=== PATIENT | female | born 1990 | race African-American/Black ===

== ENCOUNTER 2016-04-30 09:39 | Inpatient (IN) | payer MEDICAID ==
[2016-06-24] MEDS ORDERED: RINGERS SOLUTION,LACTATED 1,000 ML IV PRN ×2 (18:10→18:52)
[2016-06-24] MEDS ORDERED: RINGERS SOLUTION,LACTATED 300 ML IV ONE ×2 (18:10→18:52)
[2016-06-24] MEDS ORDERED: DINOPROSTONE 10 MG VAGINAL INSERT.SR PV PRN (18:10)
[2016-06-24] MEDS ORDERED: DINOPROSTONE 10 MG VAGINAL INSERT.SR ONE (18:49)
[2016-06-24 18:53] LABS: ABSOLUTE EOSINOPHILS # (AUTO) 0.1 10^3/uL (0.0-0.6); ABSOLUTE LYMPHOCYTES (AUTO) 1.6 10^3/uL (0.5-4.7); ABSOLUTE MONOCYTES (AUTO) 0.6 10^3/uL (0.1-1.4); ABSOLUTE NEUT (AUTO) 3.4 10^3/uL (1.7-8.2); BASOPHILS % (AUTO) 0.3 % (0-2); EOSINOPHILS % (AUTO) 1.1 % (0-6); HEMATOCRIT 31.7 % (36.0-47.0); HEMOGLOBIN 10.8 g/dL (12.0-15.5); HGB HCT DIFFERENCE 0.7; LYMPHOCYTES % (AUTO) 28.6 % (13-45); MEAN CORPUSCULAR HEMOGLOBIN 30.1 pg (27.0-33.4); MEAN CORPUSCULAR VOLUME 89 fl (80-97); MONOCYTES % (AUTO) 10.1 % (3-13); RED BLOOD COUNT 3.58 10^6/uL (3.72-5.28); RED CELL DISTRIBUTION WIDTH 13.2 % (11.5-14.0); SEGMENTED NEUTROPHILS % (AUTO) 59.9 % (42-78); WHITE BLOOD COUNT 5.6 10^3/uL (4.0-10.5)
[2016-06-24] MEDS ORDERED: GLYBURIDE 5 MG TABLET ONE (18:59)
[2016-06-24 19:11] LABS: ALANINE AMINOTRANSFERASE 33 U/L (9-52); ALBUMIN 3.3 g/dL (3.5-5.0); ALKALINE PHOSPHATASE 186 U/L (38-126); ANION GAP 10 (5-19); ASPARTATE AMINO TRANSFERASE 29 U/L (14-36); BILIRUBIN,DIRECT 0.2 mg/dL (0.0-0.4); BILIRUBIN,TOTAL 0.3 mg/dL (0.2-1.3); BLOOD UREA NITROGEN 18 mg/dL (7-20); CALCIUM 8.9 mg/dL (8.4-10.2); CARBON DIOXIDE 21 mmol/L (22-30); CHLORIDE 105 mmol/L (98-107); CREATININE RESULT 0.92 mg/dL (0.52-1.25); GLUCOSE 135 mg/dL (75-110); LDH 527 U/L (313-618); POTASSIUM 4.5 mmol/L (3.6-5.0); SODIUM 136.1 mmol/L (137-145); TOTAL PROTEIN 6.5 g/dL (6.3-8.2); URIC ACID 6.1 mg/dL (2.5-6.2)
[2016-06-24 19:27] LABS: APPEARANCE,URINE SLIGHTLY-CLOUDY; BILIRUBIN,URINE NEGATIVE (NEGATIVE); GLUCOSE, URINE NEGATIVE (NEGATIVE); KETONES,URINE NEGATIVE (NEGATIVE); LEUKOCYTE ESTERASE,URINE MODERATE (NEGATIVE); NITRITE,URINE NEGATIVE (NEGATIVE); PROTEIN,URINE 100 mg/dL (NEGATIVE); URINE SPECIFIC GRAVITY 1.025; UROBILINOGEN,URINE NEGATIVE mg/dL (<2.0)
[2016-06-24 19:32] LABS: URINE BARBITURATES SCREEN NEGATIVE; URINE METHADONE SCREEN NEGATIVE; URINE OPIATES LOW NEGATIVE; URINE PHENCYCLIDINE SCREEN NEGATIVE
[2016-06-24] MEDS ORDERED: GLYBURIDE 2.5 MG TABLET PO ONE (20:00)
[2016-06-24] MEDS ORDERED: CEFAZOLIN 1 GM/D5W RTU 50 ML IV SCH (22:00)
[2016-06-24] MEDS ORDERED: ZOLPIDEM TARTRATE 5 MG TABLET ONE (23:12)
[2016-06-24] MEDS ORDERED: ZOLPIDEM TARTRATE 5 MG TABLET PO ONE (23:15)
[2016-06-25] MEDS ORDERED: CEFAZOLIN 2 GM/D5W RTU 2 GM/50 ML RTUPB IV ONE (05:16)
[2016-06-25] MEDS ORDERED: GLYBURIDE 2.5 MG TABLET PO ONE (06:00)
[2016-06-25] MEDS ORDERED: CEFAZOLIN 2 GM/D5W RTU 50 ML IV ONE (06:00)
[2016-06-25] MEDS ORDERED: MISOPROSTOL 0.1 MG TABLET PO ONE ×2 (08:00→15:00)
[2016-06-25] MEDS ORDERED: MISOPROSTOL 0.1 MG TABLET ONE ×2 (08:28→13:51)
[2016-06-25] MEDS ORDERED: ONDANSETRON HCL INJ/PF 4 MG/2 ML SDV ONE (17:18)
[2016-06-25] MEDS ORDERED: FLUCONAZOLE 100 MG TABLET ONE (17:28)
[2016-06-25] MEDS ORDERED: PROMETHAZINE HCL 25 MG SUPP.RECT PR ONE (18:38)
[2016-06-25] MEDS ORDERED: ZOLPIDEM TARTRATE 5 MG TABLET ONE ×2 (20:30→21:32)
[2016-06-25] MEDS ORDERED: DINOPROSTONE 10 MG VAGINAL INSERT.SR ONE (20:31)
[2016-06-26 02:41] LABS: AMNISURE (ROM) NEGATIVE (NEGATIVE)
[2016-06-26] MEDS ORDERED: CEFAZOLIN 2 GM/D5W RTU 2 GM/50 ML RTUPB IV SCH (03:04)
[2016-06-26] MEDS ORDERED: ALBUTEROL SULFATE HFA (90 MCG/PUFF) 200 PUFF/8.5 GM MDI IH PRN (03:11)
[2016-06-26] MEDS ORDERED: ALBUTEROL SULFATE HFA (90 MCG/PUFF) 200 PUFF/8.5 GM MDI IH ONE (03:30)
[2016-06-26] MEDS ORDERED: CEFAZOLIN INJ 1 GM VIAL IV PRN (03:33)
[2016-06-26] MEDS ORDERED: CEFAZOLIN 2 GM/D5W RTU 2 GM/50 ML RTUPB IV ONE ×2 (03:54→11:11)
[2016-06-26] MEDS ORDERED: NALBUPHINE HCL INJ 10 MG/1 ML AMPULE ONE (04:39)
[2016-06-26] MEDS ORDERED: MISOPROSTOL 0.1 MG TABLET ONE (04:43)
[2016-06-26] MEDS ORDERED: BUPIVACAINE HCL 0.25 % INJ/PF (2.5 MG/1 ML) 30 ML VIAL ONE (05:28)
[2016-06-26] MEDS ORDERED: EPHEDRINE SULFATE INJ 50 MG/1 ML AMPULE ONE (05:28)
[2016-06-26] MEDS ORDERED: FENTANYL/BUPIVACAINE/NS/PF 200 MCG/100 ML RTUINJ EPI ONE (05:28)
[2016-06-26 05:55] LABS: ABSOLUTE MONOCYTES (AUTO) 0.8 10^3/uL (0.1-1.4); ABSOLUTE NEUT (AUTO) 9.5 10^3/uL (1.7-8.2); BASOPHILS % (AUTO) 0.3 % (0-2); HEMATOCRIT 34.3 % (36.0-47.0); HEMOGLOBIN 11.4 g/dL (12.0-15.5); HGB HCT DIFFERENCE -0.1; LYMPHOCYTES % (AUTO) 8.8 % (13-45); MEAN CORPUSCULAR HEMOGLOBIN 29.7 pg (27.0-33.4); MEAN CORPUSCULAR HGB CONC 33.2 g/dL (32.0-36.0); MEAN CORPUSCULAR VOLUME 90 fl (80-97); MONOCYTES % (AUTO) 7.2 % (3-13); RED BLOOD COUNT 3.84 10^6/uL (3.72-5.28); RED CELL DISTRIBUTION WIDTH 13.2 % (11.5-14.0); SEGMENTED NEUTROPHILS % (AUTO) 83.7 % (42-78)
[2016-06-26 06:04] LABS: WHITE BLOOD COUNT 11.3 10^3/uL (4.0-10.5)
[2016-06-26] MEDS ORDERED: OXYTOCIN/NORMAL SALINE 20 UNIT/1,000 ML RTUINJ ONE ×2 (08:46→11:06)
--- NOTE | 2016-06-26 11:02 | L&D Progress Notes ---
PROGRESS NOTES Datetime Report Generated by CPN: 06/26/2016 11:01 PROGRESS NOTE Impression: Normal Progression of Labor Impression: Normal Progression of Labor Procedures: Sterile Vag Exam Procedures: Sterile Vag Exam Plan: Continue Present Management; Induction Plan: Continue Present Management; Induction Informed Consent Obtained: Vaginal Delivery Informed Consent Obtained: Vaginal Delivery Vital Signs : Reviewed Vital Signs : Reviewed Vital Signs Comments: elevated bp Comment: Pt feeling pressure SVE as above Continue present mgmt VAGINAL EXAM Dilatation: 9 Dilatation: 0 Effacement: 90 Effacement: 50 Station: 0 Station: -1 Contractions: 3-5 MEMBRANES Membranes: Ruptured Membranes: Intact Amniotic Fluid Color: Meconium, Light FETUS A FHR - Baseline: 155 Monitoring: External US Variability: Moderate 6-25bpm Decelerations: None FHR Category: Category II SIGNATURE SIGNATURE: [id number] SIGNATURE: [id number] SIGNATURE: [id number] SIGNATURE: [id number] Assignment: Penelope Diane MD Signature: with User ID: [email or web address] : with User ID: [email or web address]
[2016-06-26] MEDS ORDERED: LIDOCAINE 1% INJ-PF (10 MG/ML) 30 ML SDV ONE (11:06)
[2016-06-26] MEDS ORDERED: MISOPROSTOL 0.2 MG TABLET ONE (11:06)
[2016-06-26] MEDS ORDERED: OXYTOCIN/NORMAL SALINE 1,000 ML IV PRN (13:25)
[2016-06-26] MEDS ORDERED: ACETAMINOPHEN WITH CODEINE #3 TABLET PO PRN ×2 (13:25)
[2016-06-26] MEDS ORDERED: MEASLES,MUMPS&RUBELLA VACC/PF 0.5 ML VIAL SUBCUT PRN (13:25)
[2016-06-26] MEDS ORDERED: DIBUCAINE 1% OINTMENT 28 GM TP PRN (13:25)
[2016-06-26] MEDS ORDERED: BENZOCAINE/MENTHOL AEROSOL SPRAY 56 ML TOP PRN (13:25)
[2016-06-26] MEDS ORDERED: ZOLPIDEM TARTRATE 5 MG TABLET PO PRN (13:25)
[2016-06-26] MEDS ORDERED: DIPH/PERTUSS(ACELL)/TETANUS VAC/PF 0.5 ML SYR (>=10YO) IM PRN (13:25)
--- NOTE | 2016-06-26 14:37 | Delivery Summary ---
Del Sum A-C Datetime Report Generated by CPN: 06/26/2016 14:37 DELIVERY PERSONNEL DELIVERY PERSONNEL: [id number];[id number];[id number] Delivery Doctor:: Araceli Juares CNM Nurse Aeronautical Inspector Certified:: Araceli Juares CNM Labor and Delivery Nurse:: Dayan Salazar RN Nursery Nurse:: Shanika Aceves RN Epilepsy Physician/TEAM OTR TRUCK DRIVER: Danae De La Torre, MARKETING COORDINATOR MATERNAL INFORMATION Delivery Anesthesia: Epidural Medications After Delivery: Pitocin Bolus-Please Comment; Pitocin Drip 20 Units/1000ml NSS; Other-Please Comment Meds After Delivery Comment: CYTOTEC 1000 MCG PER RECTUM @ 1240 Estimated Blood Loss (ml): 350 Maternal Complications: None Provider Comments: of viable male , head, shoulders, and body delivered without difficulty, with spontaneous cry and respirations, to maternal abdomen. Cord clamped X2 and cut free by pts after 2 minute delay. Spontaneous delivery of intact placenta via brian mechanism, appears intact 3 VC. Vagina and perineum inspected and repaired as above. Hemostasis acheived with external fundal massage and IV pitocin, routine pp care, mother and baby in stable condition, 1000 mcg rectal cytotec given for prophylaxis LABOR SUMMARY EDC: 07/14/2016 00:00 No. Babies in Womb: 1 Attempted: No Labor Anesthesia: Epidural LABOR INFORMATION Reason for Induction: Pre-Eclampsia; Maternal Diabetes Onset of Labor: 06/26/2016 05:28 Complete Dilatation: 06/26/2016 11:16 Cervical Ripening Agents: Cervidil; Cytotec @ Oxytocin: Induction Group B Beta Strep: positive Antibiotics # of Doses: 3 Antibiotics Time of Last Dose: 1120 Name of Antibiotic Given: Ancef 2 GM Steroids Given: None Reason Steroids Not Administered: Not Applicable MEMBRANES Membranes Rupture Method: Spontaneous Rupture of Membranes: 06/26/2016 05:50 Length of Rupture (hr): 6.68 Amniotic Fluid Color: Light Meconium Amniotic Fluid Amount: Small STAGES OF LABOR Stage 1 hr: 5 Stage 1 min: 48 Stage 2 hr: 1 Stage 2 min: 15 Stage 3 hr: 0 Stage 3 min: 4 Total Time in Labor hr: 7 Total Time in Labor min: 7 VAGINAL DELIVERY Episiotomy: None Laceration Extension: Second Degree Laceration Repair Note: Repaired with with 2-0 chromic in usual fashion using epidural for anesthesia Sponge Count Correct: Yes Sharps Count Correct: Yes CSECTION DELIVERY Primary Indication: N/A Secondary Indication: N/A CSection Incidence: N/A Labor: N/A Elective: N/A CSection Incision: N/A BABY A INFORMATION Infant Delivery Date/Time: 06/26/2016 12:31 Method of Delivery: Vaginal Born in Route : No : N/A Forceps: N/A Vacuum Extraction: N/A Shoulder Dystocia : No PRESENTATION/POSITION BABY A Presentation: Cephalic Cephalic Presentation: Vertex Vertex Position: Left Occipital Anterior Breech Presentation: N/A PLACENTA INFORMATION BABY A Placenta Delivery Time : 06/26/2016 12:35 Placenta Method of Delivery: Spontaneous Placenta Status: Delivered SCORES BABY A Heart Rate 1 min: >100 bpm Resp Effort 1 min: Good Cry Reflex Irritability 1 min: Cough or Sneeze or Pulls Away Muscle Tone 1 min: Active Motion Color 1 min: Blue/Pale Resuscitation Effort 1 min: Tactile Stimulation SCORE 1 MIN: 8 Heart Rate 5 min: >100 bpm Resp Effort 5 min: Good Cry Reflex Irritability 5 min: Cough or Sneeze or Pulls Away Muscle Tone 5 min: Active Motion Color 5 min: Body [place], Extremities Blue Resuscitation Effort 5 min: N/A SCORE 5 MIN: 9 Resuscitation Effort 10 min: N/A INFORMATION BABY A Gestational Age at Delivery: 37.3 Gestational Status: Early Term- 37- 38.6 Weeks Infant Outcome : Liveborn Infant Condition : Stable Infant Sex: Male IDENTIFICATION BABY A Verification Date/Time: 06/26/2016 12:44 ID Band Number: [id number] Mother's Name Verified: Yes RN Verifying : Sonia Harmon RNC Additional Verifying Personnel: Alexandra Herrera RN CORD INFORMATION BABY A No. Cord Vessels: 3 Nuchal Cord : N/A Cord Blood Taken: Yes-For Storage (Mom's Blood type +) Infant Suction: Mouth; Nose ASSESSMENT BABY A Physical Findings at Delivery: Caput Succedaneum Infant Respirations: Appears Normal Skin to Skin: Yes Supervisor Poultry Processing/ALS Called : No Care By: Shyanne Aceves RN Transferred To: Remains with Mother BABY B INFORMATION : N/A SIGNATURES Assignment: Penelope Diane MD Signature: with User ID: [email or web address] : with User ID: [email or web address]
--- NOTE | 2016-06-26 15:05 | Admission Physical ---
Datetime Report Generated by CPN: 06/26/2016 15:05 CURRENT ADMISSION Hx Assessment: The History has been Reviewed and is Current Chief Complaint: Other Chief Complaint Other: preeclampsia Indication for Induction: PreEclampsia Admit Plan: Initiate Labor Induction Protocol ALLERGIES Medication Allergies: Yes Medication Allergies: amoxicillin trihydrate (06/23/2016); Potassium Clavulanate */CA (06/23/2016) Medication Allergies: amoxicillin trihydrate (06/19/2016); Potassium Clavulanate */CA (06/19/2016) Medication Allergies: amoxicillin trihydrate (06/16/2016); Potassium Clavulanate * (06/16/2016) Medication Allergies: amoxicillin trihydrate (05/26/2016); Potassium Clavulanate * (05/26/2016) Medication Allergies: amoxicillin trihydrate (12/03/2015); Potassium Clavulanate * (12/03/2015) Latex: No Latex Allergies Food Allergies: none Environmental Allergies: none OBSTETRICAL HISTORY EDC: 07/14/2016 00:00 : 1 Para: 0 Term: 0 : 0 SAB: 0 IAB: 0 Ectopic: 0 Livin Cesareans: 0 VBACs: 0 Multiple Births: 0 Gestational Diabetes: Yes Rh Sensitization: No Incompetent Cervix: No GUME: No Infertility: No ART Treatment: No Uterine Anomaly: No IUGR: No Hx Previous C/S: No Macrosomia: No Hx Loss/Stillborn: No PIH: No Hx : No Placenta Previa/Abruption: No Depression/PP Depression: No PTL/PROM: No Post Hemorrhage: No Current Procedures: Ultrasound Obstetrical History Comments: G1 - Current GDM SEE RECORDS Alcohol: No Marijuana : No Cocaine: No Other Illicit Drugs: No Cigarettes: Never Smoker. [id number] MEDICAL HISTORY Diabetes: Yes Diabetes Type: Gestational Diabetes Blood Transfusion: No Pulmonary Disease (Asthma, TB): No Breast Disease: No Hypertension: Yes Medical Attendant Surgery: No Heart Disease: No Hosp/Surgery: Yes Autoimmune Disorder: No Anesthetic Complications: No Kidney Disease: No Abnormal Pap Smear: No Neuro/Epilepsy: No Psychiatric Disorders: No Other Medical Diseases: No Hepatitis/Liver Disease: No Significant Family History: No Varicosities/Phlebitis: No Trauma/Violence : No Thyroid Dysfunction: No INFECTIOUS HISTORY Gonorrhea: No Genital Herpes: No Chlamydia: No Tuberculosis: No Syphilis: No Hepatitis: No HIV/AIDS Exposure: No Rash or Viral Illness: No HPV: No PHYSICAL EXAM General: Normal HEENT: Normal Neurologic: Normal Thyroid: Normal Heart: Normal Lungs: Normal Breast: Normal Back: Normal Abdomen: Normal Genitourinary Exam: Normal Extremities: Normal DTRs: Normal Pelvic Type: Adequate Physical Exam Comments: GDMA2, preeclampsia GBS+ efw 6.5 pounds VAGINAL EXAM Dilatation: 9 Dilatation: 0 Effacement: 90 Effacement: 50 Station: 0 Station: -1 Contraction Comments: 3-5 MEMBRANES Membranes: Ruptured Membranes: Intact Amniotic Fluid Color: Meconium, Light FETUS A EGA: 37.1 Monitoring: External US FHR Category: Category I Admit Comment: Admit for induction due to preeclampsia-cervidl tonight, cont glyburide 2.5 bid, gbs prophylaxis in labor-check labs and consider magnesium seizure prophylaxis if needed PLANS FOR LABOR AND DELIVERY Labor and Delivery: Cord Blood Donation Pain Management: Epidural Feeding Preference: Breast Benefit of Breast Feed Discussed: Yes Circumcision: No INFORMED CONSENT Informed Consent Obtained: Vaginal Delivery Informed Consent Obtained: Vaginal Delivery Signature: with User ID: [email or web address]
[2016-06-26] MEDS: IBUPROFEN 800 MG TABLET PO SCH ×2 (15:52→21:17)
[2016-06-26] MEDS: DOCUSATE SODIUM 100 MG CAPSULE PO SCH (17:27)
[2016-06-26] MEDS: FERROUS SULFATE 325 MG TABLET PO SCH (17:27)
[2016-06-27] MEDS: IBUPROFEN 800 MG TABLET PO SCH ×3 (05:47→21:13)
[2016-06-27 06:44] LABS: HEMATOCRIT 27.4 % (36.0-47.0); HGB HCT DIFFERENCE 0.2; MEAN CORPUSCULAR HEMOGLOBIN 30.2 pg (27.0-33.4); MEAN CORPUSCULAR HGB CONC 33.5 g/dL (32.0-36.0); MEAN CORPUSCULAR VOLUME 90 fl (80-97); RED BLOOD COUNT 3.04 10^6/uL (3.72-5.28); RED CELL DISTRIBUTION WIDTH 13.1 % (11.5-14.0); WHITE BLOOD COUNT 13.4 10^3/uL (4.0-10.5)
[2016-06-27 07:03] LABS: HEMOGLOBIN 9.2 g/dL (12.0-15.5)
[2016-06-27] MEDS: DOCUSATE SODIUM 100 MG CAPSULE PO SCH ×2 (09:19→17:19)
[2016-06-27] MEDS: FERROUS SULFATE 325 MG TABLET PO SCH ×2 (09:19→17:19)
[2016-06-27] MEDS: PRENATAL VITAMIN W-O CA NO5/FE FUMARATE/FA CAPSULE PO SCH (09:19)
--- NOTE | 2016-06-27 09:37 | PDOC PROGRESS REPORT ---
Subjective-OB Subjective: Post Delivery Day: 1 25 year old. Denies any needs at this time, states pain is well controlled, voiding without difficulty, lochia is stable, tolerating diet, bonding well with baby. Physical Exam (OB) Vital Signs: Temp Pulse Resp BP Pulse Ox 98.4 F 79 18 130/91 H 98 06/26/16 20:04 06/26/16 20:04 06/26/16 20:04 06/26/16 20:04 06/26/16 20:04 Intake & Output 06/26/16 06/27/16 06/28/16 06:59 06:59 06:59 Weight 94.665 kg - PIH/Pre-Eclampsia Clonus: Negative - Lochia Lochia Amount: Small 10-25 ml Lochia Color: Rubra/Red - Abdomen Description: Soft, Round Hernia Present: No Fundal Description: Firm, Midline Fundal Height: u/u - u/2 Objective-Diagnostic Laboratory: 06/27/16 06:18 06/24/16 18:06 06/27/16 06:18 WBC 13.4 H RBC 3.04 L Hgb 9.2 L D Hct 27.4 L MCV 90 MCH 30.2 MCHC 33.5 RDW 13.1 Plt Count 252 Assessment and Plan(PN) - Assessment and Plan (1) Vaginal delivery Is this a current diagnosis for this admission?: YesPlan: routine pp care (2) Acute blood loss anemia Is this a current diagnosis for this admission?: YesPlan: ferrous sulfate increase dietary iron (3) Gestational diabetes Qualifiers: Gestational diabetes mellitus control: diet-controlled Trimester: unspecified trimester Qualified Code(s): O24.410 - Gestational diabetes mellitus in , diet controlled Is this a current diagnosis for this admission?: YesPlan: will need pp glucose screening yearly dm screening for next 10 year (4) Pre-eclampsia Qualifiers: Trimester: unspecified trimester Qualified Code(s): O14.90 - Unspecified pre-eclampsia, unspecified trimester Is this a current diagnosis for this admission?: YesPlan: monitor bp 1 week bp check f/u @ wha - Time Spent with Patient Time with patient: Less than 15 minutes Critical Time spent with patient: Less than 15 minutes Medications reviewed and adjusted accordingly: Yes - Disposition Anticipated Discharge: Home Within: within 24 hours
[2016-06-27] MEDS ORDERED: SENNOSIDES/DOCUSATE 8.6-50 MG 1 EACH TABLET PO SCH (10:00)
[2016-06-28] MEDS: IBUPROFEN 800 MG TABLET PO SCH (05:18)
[2016-06-28 09:10] VITALS: BP 125/88
[2016-06-28] MEDS: PRENATAL VITAMIN W-O CA NO5/FE FUMARATE/FA CAPSULE PO SCH (09:43)
[2016-06-28] MEDS: FERROUS SULFATE 325 MG TABLET PO SCH (09:43)
[2016-06-28] MEDS: DOCUSATE SODIUM 100 MG CAPSULE PO SCH (09:43)
--- NOTE | 2016-06-28 09:48 | PDOC DISCHARGE SUMMARY ---
Final Diagnosis Discharge Date: 06/28/16 - Final Diagnosis (1) Acute blood loss anemia Is this a current diagnosis for this admission?: Yes (2) Vaginal delivery Is this a current diagnosis for this admission?: Yes (3) Gestational diabetes Is this a current diagnosis for this admission?: Yes (4) Pre-eclampsia Is this a current diagnosis for this admission?: Yes Discharge Data - Discharge Medication Home Medications: Fluticasone/Salmeterol [Advair 100-50 Diskus 28 Dose] 2 inh IH DAILY 05/26/16 Vit/Iron Fumarate/FA [ Tablet] 1 each PO DAILY 05/26/16 Docusate Sodium [Colace 100 mg Capsule] 100 mg PO BID #60 capsule 06/28/16 Ferrous Sulfate [Feosol 325 mg Tablet] 325 mg PO BID #60 tablet 06/28/16 Ibuprofen [Motrin 800 mg Tablet] 800 mg PO Q8 #60 tablet 06/28/16 Gestational Age: 37.3 Reason(s) for Admission: Induction of Labor, PIH Procedures: NST Intrapartum Procedure(s): Spontaneous Vaginal Delivery Complication(s): Laceration-Vaginal, Laceration-Perineal Laceration-Degree: 2nd - Simpson Data Baby 1 Male at 1 minute: 8 at 5 minutes: 9 Home with Mother: Yes Complications: No - Diagnosis Test Laboratory: Temp Pulse Resp BP Pulse Ox 98.9 F 95 16 125/88 H 97 06/28/16 08:48 06/28/16 08:55 06/28/16 08:48 06/28/16 08:55 06/28/16 08:48 06/24/16 06/24/16 06/26/16 18:06 18:08 05:47 RBC 3.58 L 3.84 Hgb 10.8 L 11.4 L Hct 31.7 L 34.3 L Urine Opiates Screen NEGATIVE 06/27/16 06:18 RBC 3.04 L Hgb 9.2 L D Hct 27.4 L Urine Opiates Screen - Discharge information/Instructions Discharge Activity: Activity As Tolerated, No Lifting Over 10 Pounds, No Lifting /Push/Pulling, Pelvic Rest, No tub bath Discharge Diet: Regular Disposition: HOME, SELF-CARE Follow up with: [facility] in: 1, Weeks
== END 2016-06-28 11:40 | disposition home or self-care (01) | DRG 775 ==
LOC: 5TH 09:39 → UNDOADMIN 09:39 → LR 06-24 17:27 → 2S 06-26 15:04
PROVIDERS: ADMIT Specialist; ATTEND Specialist
PROC: 4A1HXCZ Monitoring of Products of Conception, Cardiac Rate, External Approach (ICD-10-PCS; 2016-06-24)
PROC: 3E0P7GC Introduction of Other Therapeutic Substance into Female Reproductive, Via Natural or Artificial Opening (ICD-10-PCS; 2016-06-24)
PROC: 10E0XZZ Delivery of Products of Conception, External Approach (ICD-10-PCS; principal; 2016-06-26)
PROC: 0KQM0ZZ Repair Perineum Muscle, Open Approach (ICD-10-PCS; 2016-06-26)
DX: O14.94 Unspecified pre-eclampsia, complicating childbirth (principal); D62 Acute posthemorrhagic anemia; O24.429 Gestational diabetes mellitus in childbirth, unspecified control; O99.02 Anemia complicating childbirth; O70.1 Second degree perineal laceration during delivery; O77.0 Labor and delivery complicated by meconium in amniotic fluid; O99.824 Streptococcus B carrier state complicating childbirth; Z3A.37 37 weeks gestation of pregnancy; Z37.0 Single live birth
CPT/HCPCS: 36415; 80053; 80307; 81005; 82962; 83615; 84112; 84550; 85025; 85027; 86592; 86850; 86900; 86901; 90707; J0690; J2300; J2405; J2590; J3490; Q0114

== ENCOUNTER 2016-05-26 10:08 | Outpatient (CLI) | payer MEDICAID ==
[2016-05-26 10:59] LABS: APPEARANCE,URINE SLIGHTLY-CLOUDY; BILIRUBIN,URINE NEGATIVE (NEGATIVE); GLUCOSE, URINE NEGATIVE (NEGATIVE); KETONES,URINE NEGATIVE (NEGATIVE); LEUKOCYTE ESTERASE,URINE LARGE (NEGATIVE); NITRITE,URINE NEGATIVE (NEGATIVE); PROTEIN,URINE NEGATIVE (NEGATIVE); URINE SPECIFIC GRAVITY 1.014; UROBILINOGEN,URINE NEGATIVE mg/dL (<2.0)
[2016-05-26 11:22] LABS: URINE BARBITURATES SCREEN NEGATIVE; URINE METHADONE SCREEN NEGATIVE; URINE OPIATES LOW NEGATIVE; URINE PHENCYCLIDINE SCREEN NEGATIVE
--- NOTE | 2016-05-26 16:14 | L&D Discharge Summary ---
OB Discharge Summary Datetime Report Generated by CPN: 05/26/2016 16:14 DISCHARGE DIAGNOSIS Diagnosis/Symptoms: False Labor Number of Babies in Womb: 1 Parity: 0 DIET/ACTIVITY/RESTRICTIONS Diet: Regular Activity: Normal Activity TEACHING/INSTRUCTIONS/REFERRALS Instructions Given To: Patient, Instructions Understood: Patient Verbalized Understanding; Support Person Verbalized Understanding Referrals: None Educational Materials- Other: Kick Counts, Labor DISCHARGE INFORMATION Discharged AMA: No Discharge Date/Time: 05/26/2016 12:00 Discharged To: Home Discharge Provider Name: Dr. Villareal Accompanied By: Discharge Method: Ambulatory Condition: Stable FOLLOW UP INFORMATION Follow Up With: [facility] Follow Up On: As Scheduled Follow Up Phone Number: [facility] - GENERAL INSTR-CALL PROVIDER IF: Contractions: Contractions or cramps become more frequent than 8 in one hour or 4 in 20 minutes; Regular painful contractions every 5 minutes or less for one hour. Time your contractions from the beginning of one to the beginning of the next Pressure: Pressure in your vagina or lower abdomen that may feel like the baby is pushing down Gush of Fluid/Blood: Gush of fluid or blood from your vagina (it is normal to have spotting after vaginal exam or intercourse) Vaginal Discharge: Change in the type or amount of vaginal discharge Decreased Movement: Your baby is not moving as much as usual- 4 movements in 1 hour after drinking and resting on side
--- NOTE | 2016-05-27 22:48 | Antepartum Discharge Summary ---
Antepartum DC Datetime Report Generated by CPN: 05/27/2016 22:45 DIET/ACTIVITY/RESTRICTIONS Diet: Regular (05/26/2016 12:00:Nu Broman, RN) Activity: Normal Activity (05/26/2016 12:00:Nu Broman, RN) TEACHING/INSTRUCTIONS/REFERRALS Instructions Given To: Patient, (05/26/2016 12:00:Nu Broman, RN) Instructions Understood: Patient Verbalized Understanding; Support Person Verbalized Understanding (05/26/2016 12:00:Nu Broman, RN) Referrals: None (05/26/2016 12:00:Nu Wynn RN) Educational Materials- Other: Kick Counts, Labor (05/26/2016 12:00:Nu Wynn RN) DISCHARGE INFORMATION Discharged AMA: No (05/26/2016 12:00:Nu Wynn RN) Discharge Date/Time: 05/26/2016 12:00 (05/26/2016 12:00:Nu Wynn RN) Discharged To: Home (05/26/2016 12:00:Nu Wynn RN) Discharge Provider Name: Dr. Villareal (05/26/2016 12:00:Nu Wynn RN) Accompanied By: (05/26/2016 12:00:Nu Wynn RN) Discharge Method: Ambulatory (05/26/2016 12:00:Nu Wynn RN) Condition: Stable (05/26/2016 12:00:Nu Wynn RN) FOLLOW UP INFORMATION Follow Up With: [facility] (05/26/2016 12:00:Nu Wynn RN) Follow Up On: As Scheduled (05/26/2016 12:00:Nu Wynn RN) Follow Up Phone Number: [facility] - (05/26/2016 12:00:Nu Wynn RN) GENERAL INSTR-CALL PROVIDER IF: Contractions: Contractions or cramps become more frequent than 8 in one hour or 4 in 20 minutes; Regular painful contractions every 5 minutes or less for one hour. Time your contractions from the beginning of one to the beginning of the next (05/26/2016 12:00:Nu Wynn RN) Pressure: Pressure in your vagina or lower abdomen that may feel like the baby is pushing down (05/26/2016 12:00:Nu Wynn RN) Gush of Fluid/Blood: Gush of fluid or blood from your vagina (it is normal to have spotting after vaginal exam or intercourse) (05/26/2016 12:00:Nu Wynn RN) Vaginal Discharge: Change in the type or amount of vaginal discharge (05/26/2016 12:00:Nu Wynn RN) Decreased Movement: Your baby is not moving as much as usual- 4 movements in 1 hour after drinking and resting on side (05/26/2016 12:00:Nu Wynn RN)
--- NOTE | 2016-05-27 22:48 | L&D Discharge Summary ---
OB Discharge Summary Datetime Report Generated by CPN: 05/27/2016 22:45 DISCHARGE DIAGNOSIS Diagnosis/Symptoms: False Labor Gestation: 33.0 Number of Babies in Womb: 1 Parity: 0 DIET/ACTIVITY/RESTRICTIONS Diet: Regular Activity: Normal Activity TEACHING/INSTRUCTIONS/REFERRALS Instructions Given To: Patient, Instructions Understood: Patient Verbalized Understanding; Support Person Verbalized Understanding Referrals: None Educational Materials- Other: Kick Counts, Labor DISCHARGE INFORMATION Discharged AMA: No Discharge Date/Time: 05/26/2016 12:00 Discharged To: Home Discharge Provider Name: Dr. ChaMono Accompanied By: Discharge Method: Ambulatory Condition: Stable FOLLOW UP INFORMATION Follow Up With: [facility] Follow Up On: As Scheduled Follow Up Phone Number: [facility] - GENERAL INSTR-CALL PROVIDER IF: Contractions: Contractions or cramps become more frequent than 8 in one hour or 4 in 20 minutes; Regular painful contractions every 5 minutes or less for one hour. Time your contractions from the beginning of one to the beginning of the next Pressure: Pressure in your vagina or lower abdomen that may feel like the baby is pushing down Gush of Fluid/Blood: Gush of fluid or blood from your vagina (it is normal to have spotting after vaginal exam or intercourse) Vaginal Discharge: Change in the type or amount of vaginal discharge Decreased Movement: Your baby is not moving as much as usual- 4 movements in 1 hour after drinking and resting on side
--- NOTE | 2016-05-27 22:48 | L&D Current Admission ---
Current Admit Datetime Report Generated by CPN: 05/27/2016 22:45 ADMISSION INFORMATION Chief Complaint: Contractions (05/26/2016 10:34:Nu Broman, RN)
--- NOTE | 2016-05-27 22:48 | L&D General Admission ---
General Admit Datetime Report Generated by CPN: 05/27/2016 22:45 INFORMATION Patient Age: 26 (04/30/2016 09:39:QS system process) EDC: 07/14/2016 00:00 (05/26/2016 10:16:Nu Wynn RN) : 1 (05/26/2016 10:16:Nu Wynn RN) Para: 0 (05/26/2016 10:16:Nu Wynn RN) Term: 0 (05/26/2016 10:16:Nu Wynn RN) : 0 (05/26/2016 10:16:Nu Wynn RN) Spontaneous Abortions: 0 (05/26/2016 10:16:Nu Wynn RN) Induced Abortions: 0 (05/26/2016 10:16:Nu Wynn RN) Livin (05/26/2016 10:16:Nu Wynn RN) Cesareans: 0 (05/26/2016 10:16:Nu Wynn RN) VBACs: 0 (05/26/2016 10:16:Nu Wynn RN) Ectopic: 0 (05/26/2016 10:16:Nu Wynn RN) Multiple Births: 0 (05/26/2016 10:16:Nu Wynn RN) Baby, Number in Womb: 1 (05/26/2016 10:16:Nu Wynn RN) CARE [facility] Contracts[facility] (05/26/2016 10:16:Nu Wynn RN) Adequate Care: Yes (05/26/2016 10:16:Nu Wynn RN) Height (in): 64 (05/26/2016 10:58:QS system process) ALLERGIES Medication Allergy: Yes (05/26/2016 10:16:Nu Wynn RN) Medication Allergies: amoxicillin trihydrate (05/26/2016); Potassium Clavulanate * (05/26/2016) (05/26/2016 10:53:QS system process) Medication Allergies: amoxicillin trihydrate (12/03/2015); Potassium Clavulanate * (12/03/2015) (04/30/2016 09:39:QS system process) Latex Allergy: No Latex Allergies (05/26/2016 10:16:Nu Wynn RN) COMMUNICATION Primary Language: Urdu (05/26/2016 10:16:Nu Wynn RN) Medical Tx Preferred Language: Urdu (05/26/2016 10:16:Nu Wynn RN) Communication Barrier(s): None (05/26/2016 10:16:Nu Wynn RN) DEMOGRAPHICS Address: [address] [place] [address] (04/30/2016 09:39:QS system process) Zipcode: [address] (04/30/2016 09:39:QS system process) Home (04/30/2016 09:39:QS system process) SSN: [id number] (04/30/2016 09:39:QS system process) Next of Kin Name: FILIPE PALOMO (04/30/2016 09:39:QS system process) Next of Kin (04/30/2016 09:39:QS system process) Next of Kin Relationship: FA (04/30/2016 09:39:QS system process) Date of : 1990 (04/30/2016 09:39:QS system process) Marital Status: (04/30/2016 09:39:QS system process) Sex: Female (04/30/2016 09:39:QS system process) Race: (04/30/2016 09:39:QS system process) Ethnicity: Non- or (04/30/2016 09:39:QS system process) Jain: None (04/30/2016 09:39:QS system process) DRUG AND ALCOHOL USE Alcohol: No (05/26/2016 10:16:Nu Wynn RN) Cigarettes: Never Smoker. [id number] (05/26/2016 10:16:Nu Wynn RN) Marijuana: No (05/26/2016 10:16:Nu Wynn RN) Cocaine: No (05/26/2016 10:16:Nu Wynn RN) Other Illicit Drugs: No (05/26/2016 10:16:Nu Wynn RN) VACCINE HISTORY Influenza Vaccine: Yes (05/26/2016 10:16:Nu Wynn RN) Influenza Date: 11/2015 (05/26/2016 10:16:Nu Wynn RN) Pneumococcal Vaccine: No (05/26/2016 10:16:Nu Wynn RN) Tetanus Vaccine: Yes (05/26/2016 10:16:Nu Wynn RN) Tdap Vaccine: Yes (05/26/2016 10:16:Nu Wynn RN) Hepatitis B Vaccine: Uncertain (05/26/2016 10:16:Nu Wynn RN) Founder And President: [facility] (05/26/2016 10:16:Nu Wynn RN) Feeding Preference: Breast (05/26/2016 10:16:Nu Wynn RN) Benefit of Breast Feed Discussed: Yes (05/26/2016 10:16:Nu Wynn RN) Circumcision: No (05/26/2016 10:16:Nu Wynn RN) Classes Attended: Yes (05/26/2016 10:16:Nu Wynn RN) Tubal Ligation: No (05/26/2016 10:16:Nu Wynn RN) Consent: N/A (05/26/2016 10:16:Nu Wynn RN) Pain Management Plans: Epidural (05/26/2016 10:16:Nu Wynn RN) Plans for Labor and Delivery: Cord Blood Donation (05/26/2016 10:16:Nu Wynn RN) Support Person: Vincent (05/26/2016 10:16:Nu Wynn RN) Support Person Relationship: (05/26/2016 10:16:Nu Wynn RN) Cultural/Spritual Practice: No (05/26/2016 10:16:Nu Wynn RN) Spir/Cult Dietary Needs: No (05/26/2016 10:16:Nu Wynn RN) LIVING SITUATION/DISCHARGE PLAN Living Arrangements: Apartment (05/26/2016 10:16:Nu Wynn RN) Adequate Access to:: Electric; Heat; Refrigeration; Plumbing/Running water; Phone; Transportation (05/26/2016 10:16:Nu Wynn RN) WIC Program: Yes (05/26/2016 10:16:Nu Wynn RN) Discharge [place] Stained Glass Person: (05/26/2016 10:16:Nu Wynn RN) Person to Help after Discharge: (05/26/2016 10:16:Nu Wynn RN) Currently Using Commun Resources: Yes (05/26/2016 10:16:Nu Wynn RN) Specify Current Resource Used: Medicaid, Food/Nutrition (05/26/2016 10:16:Nu Wynn RN) Outside Agency/Physician Anesthesiologist: No (05/26/2016 10:16:Nu Wynn RN) Car Seat for Discharge: Yes (05/26/2016 10:16:Nu Wynn RN) Adoption Requested: No (05/26/2016 10:16:Nu Wynn RN) Pt Contact w/ Post : N/A (05/26/2016 10:16:Nu Wynn RN) LABS Blood Type: B Positive (05/26/2016 10:16:Nu Wynn RN) Antibody Screen: Negative (05/26/2016 10:16:Nu Wynn RN) Gonorrhea: Negative (05/26/2016 10:16:Nu Wynn RN) Chlamydia: Negative (05/26/2016 10:16:Nu Wynn RN) RPR/VDRL: Nonreactive (05/26/2016 10:16:Nu Wynn RN) HIV Exposure Test: Negative (05/26/2016 10:16:Nu Wynn RN) HIV Results: Negative (05/26/2016 10:16:Nu Wynn RN) Hepatitis B: Negative (05/26/2016 10:16:Nu Wynn RN) Rubella: Immune (05/26/2016 10:16:Nu Wynn RN) OB/PREVIOUS HISTORY Previous Procedures: None (05/26/2016 10:16:Nu Wynn RN) Current Procedures: Ultrasound (05/26/2016 10:16:Nu Wynn RN) History of Previous : No (05/26/2016 10:16:Nu Wynn RN) History of Gestational Diabetes: Yes (05/26/2016 10:16:uN Wynn RN) History of PIH: No (05/26/2016 10:16:Nu Wynn RN) History of Incompetent Cervix: No (05/26/2016 10:16:Nu Wynn RN) History of Placenta Previa/Abrup: No (05/26/2016 10:16:Nu Wynn RN) History of Macrosomia: No (05/26/2016 10:16:Nu Wynn RN) History of IUGR: No (05/26/2016 10:16:Nu Wynn RN) History of Hemorrhage: No (05/26/2016 10:16:Nu Wynn RN) History of Loss/Stillborn: No (05/26/2016 10:16:Nu Wynn RN) History of : No (05/26/2016 10:16:Nu Wynn RN) History of D (Rh) Sensitization: No (05/26/2016 10:16:Nu Wynn RN) History Recurrent Loss/Stillborn: No (05/26/2016 10:16:Nu Wynn RN) History Depression/PP Depression: No (05/26/2016 10:16:Nu Wynn RN) History of Uterine Anomaly/GUME: No (05/26/2016 10:16:Nu Wynn RN) History of Infertility: No (05/26/2016 10:16:Nu Wynn RN) History of ART Treatment: No (05/26/2016 10:16:Nu Wynn RN) History of GUME: No (05/26/2016 10:16:Nu Wynn RN) Comments Obstetrical History: G1 - Current GDM diet controlled (05/26/2016 10:16:Nu Wynn RN) MEDICAL HISTORY Med Hx Diabetes: No (05/26/2016 10:16:Nu Wynn RN) Med Hx Hypertension: Yes (05/26/2016 10:16:Nu Wynn RN) Med Hx Heart Disease: No (05/26/2016 10:16:Nu Wynn RN) Med Hx Autoimmune Disorder: No (05/26/2016 10:16:Nu Wynn RN) Med Hx Kidney Disease/UTI: No (05/26/2016 10:16:Nu Wynn RN) Med Hx Neurologic/Epilepsy: No (05/26/2016 10:16:Nu Wynn RN) Med Hx Psychiatric Disorders: No (05/26/2016 10:16:Nu Wynn RN) Med Hx Hepatitis/Liver Disease: No (05/26/2016 10:16:Nu Wynn RN) Med Hx Varicosities/Phlebitis: No (05/26/2016 10:16:Nu Wynn RN) Med Hx Thyroid Dysfunction: No (05/26/2016 10:16:Nu Wynn RN) Med Hx Trauma/Violence: No (05/26/2016 10:16:Nu Wynn RN) Med Hx Blood Transfusion: No (05/26/2016 10:16:Nu Wynn RN) Med Hx Pulmonary (Asthma,TB): No (05/26/2016 10:16:Nu Wynn RN) Med Hx Breast: No (05/26/2016 10:16:Nu Wynn RN) 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 (05/26/2016 10:16:Nu Wynn RN) Med Hx Hospitalization/Surgery: Yes (05/26/2016 10:16:Nu Wynn RN) Med Hx Anesthetic Complications: No (05/26/2016 10:16:Nu Wynn RN) Med Hx Abnormal Pap Smear: No (05/26/2016 10:16:Nu Wynn RN) Other Medical Diseases: No (05/26/2016 10:16:Nu Wynn RN) Med Hx Significant Family Hx: No (05/26/2016 10:16:Nu Wynn RN) INFECTIOUS HISTORY Inf Hx Gonorrhea: No (05/26/2016 10:16:Nu Wynn RN) Inf Hx Chlamydia: No (05/26/2016 10:16:Nu Wynn RN) Inf Hx Syphilis: No (05/26/2016 10:16:Nu Wynn RN) Inf Hx HIV/AIDS: No (05/26/2016 10:16:Nu Wynn RN) Inf Hx Human Papilloma Virus: No (05/26/2016 10:16:Nu Wynn RN) Inf Hx Pt/Partner Genital Herpes: No (05/26/2016 10:16:Nu Wynn RN) Inf Hx Tuberculosis/Exposure: No (05/26/2016 10:16:Nu Wynn RN) Inf Hx Hepatitis B,C: No (05/26/2016 10:16:Nu Wynn RN) Inf Hx Rash or Viral Illness: No (05/26/2016 10:16:Nu Wynn RN) GENETIC HISTORY Gen Hx Age >=35 at CLAU: No (05/26/2016 10:16:Nu Wynn RN) Gen Hx Thalassemia: No (05/26/2016 10:16:Nu Wynn RN) Gen Hx Congenital Heart Defect: No (05/26/2016 10:16:Nu Wynn RN) Gen Hx Neural Tube Defect: No (05/26/2016 10:16:Nu Wynn RN) Gen Hx Down's Syndrome: No (05/26/2016 10:16:Nu Wynn RN) Gen Hx Jacky-Sachs: No (05/26/2016 10:16:Nu Wynn RN) Gen Hx [place]: No (05/26/2016 10:16:Nu Wynn RN) Gen Hx Familial Dysautonomia: No (05/26/2016 10:16:Nu Wynn RN) Gen Hx Sickle Cell Disease/Trait: Yes (05/26/2016 10:16:Nu Wynn RN) Gen Hx Hemophilia/Blood Disorder: No (05/26/2016 10:16:Nu Wynn RN) Gen Hx Muscular Dystrophy: No (05/26/2016 10:16:Nu Wynn RN) Gen Hx Cystic Fibrosis: No (05/26/2016 10:16:Nu Wynn RN) Gen Hx [place] Chorea: No (05/26/2016 10:16:Nu Wynn RN) Gen Hx Mental Retardation/Autism: No (05/26/2016 10:16:Nu Wynn RN) Gen Hx Tested for Fragile X: No (05/26/2016 10:16:Nu Wynn RN) Gen Hx Other Inher/Chromosomal: No (05/26/2016 10:16:Nu Wynn RN) Gen Hx Maternal Metabolic DO: No (05/26/2016 10:16:Nu Wynn RN) Gen Hx Pt Father or FOB Defect: No (05/26/2016 10:16:Nu Wynn RN) Gen Hx Other Genetic History: No (05/26/2016 10:16:Nu Wynn RN) Gen Hx Drugs/Meds since LMP: No (05/26/2016 10:16:Nu Wynn RN) Details of Genetic History: Sickle Cell Disease - Maternal Mother (05/26/2016 10:16:Nu Wynn RN)
--- NOTE | 2016-05-28 04:48 | L&D Admission Assessment ---
LD ADM ASMT Datetime Report Generated by CPN: 05/28/2016 04:46 PATIENT ASSESSMENT Assessment Type: Triage (05/26/2016 10:34:Nu Broman, RN) WEIGHT Weight (lb): 202 (05/26/2016 10:58:QS system process) Weight (kg): 91.8 (05/26/2016 10:58:QS system process) PAIN Pain Presence: Intermittent (05/26/2016 10:34:Nu Broman, RN) Pain Type: Cramping; Contraction (05/26/2016 10:34:Nu Broman, RN) Pain Location: Abdomen (05/26/2016 10:34:Nu Broman, RN) Pain Related to Contraction: Yes (05/26/2016 10:34:Nu Broman, RN) CONTRACTIONS Frequency (min): none (05/26/2016 11:30:Nu Broman, RN) Frequency (min): none (05/26/2016 11:00:Nu Broman, RN) Frequency (min): irregular per pt, infrequent today per pt report (05/26/2016 10:34:Nu Broman, RN) Quality: Mild (05/26/2016 11:30:Nu Broman, RN) Quality: Mild (05/26/2016 11:00:Nu Broman, RN) Resting Tone [place]: Relaxed (05/26/2016 11:30:Nu Broman, RN) Resting Tone [place]: Relaxed (05/26/2016 11:00:Nu Broman, RN) VAGINAL EXAM Dilatation (cm): 0.0 (05/26/2016 11:47:Nu Broman, RN) Effacement (%): 0 (05/26/2016 11:47:Nu Broman, RN) Membranes Status: Intact (05/26/2016 10:34:Nu Broman, RN) NEURO Level of Consciousness: Fully Conscious (05/26/2016 10:34:Nu Broman, RN) DTR's/Clonus: DTRs 2+; No Clonus (05/26/2016 10:34:Nu Broman, RN) Headache: Denies (05/26/2016 10:34:Nu Broman, RN) Dizziness: No (05/26/2016 10:34:Nu Broman, RN) Blurred Vision: No (05/26/2016 10:34:Nu Broman, RN) Extremity Numbness/Tingling : None (05/26/2016 10:34:Nu Broman, RN) Extremity Movement: Full Range of Motion (05/26/2016 10:34:Nu Broman, RN) CARDIOVASCULAR Heart Rhythm: Regular (05/26/2016 10:34:Nu Wynn RN) Nailbeds: [place] (05/26/2016 10:34:Nu Wynn RN) Capillary Refill: Less than 3 Seconds (05/26/2016 10:34:uN Wynn RN) Lower Extremities Edema: None (05/26/2016 10:34:Nu Wynn RN) Upper Extremities Edema: None (05/26/2016 10:34:Nu Wynn RN) Facial Edema: None (05/26/2016 10:34:Nu Wynn RN) DVT RISK ASSESSMENT DVT Risk Age: Age less than 41 years (05/26/2016 10:34:Nu Wynn RN) DVT Risk BMI: BMI<31 (05/26/2016 10:34:Nu Wynn RN) DVT Risk Surgery: None Applicable (05/26/2016 10:34:Nu Wynn RN) DVT Risk Other: Women Only- or (<1 month) (05/26/2016 10:34:Nu Wynn RN) DVT Risk Total: 1 (05/26/2016 10:34:QS system process) DVT Risk Text: Low Risk (<10%) No specific measures, early ambulation (05/26/2016 10:34:QS system process) RESPIRATORY Respiratory Effort: Unlabored; Regular Rhythm; Equal Expansion (05/26/2016 10:34:Nu Broman, RN) Breath Sounds, Left: Clear and Equal (05/26/2016 10:34:Nu Broman, RN) Breath Sounds, Right: Clear and Equal (05/26/2016 10:34:Nu Broman, RN) Cough Productivity: None (05/26/2016 10:34:Nu Broman, RN) GASTROINTESTINAL Nausea/Vomiting: Denies (05/26/2016 10:34:Nu Broman, RN) Bowel Sounds: Normoactive; All Quadrants (05/26/2016 10:34:Nu Broman, RN) RUQ Epigastric Pain: Denies (05/26/2016 10:34:Nu Broman, RN) Bowel Patterns: Soft, Formed Stool (05/26/2016 10:34:Nu Broman, RN) Hemorrhoids: None (05/26/2016 10:34:Nu Broman, RN) Diet Type: Regular diet (05/26/2016 10:34:Nu Broman, RN) Last Meal: 05/26/2016 09:00 (05/26/2016 10:34:Nu Broman, RN) GENITOURINARY Bladder: Nondistended (05/26/2016 10:34:Nu Broman, RN) Frequency of Urination: Yes (05/26/2016 10:34:Nu Broman, RN) Urination Burning: No (05/26/2016 10:34:Nu Broman, RN) Vaginal Bleeding: None (05/26/2016 10:34:Nu Broman, RN) Vaginal Discharge Amount: Small (05/26/2016 10:34:Nu Broman, RN) Vaginal Discharge Color: White (05/26/2016 10:34:Nu Broman, RN) Vaginal Discharge Odor: Non-Odorous (05/26/2016 10:34:Nu Broman, RN) Vaginal Discharge Character: Thin (05/26/2016 10:34:Nu Broman, RN) INTEGUMENTARY Skin Color: Normal for Race (05/26/2016 10:34:Nu Wynn RN) Skin Temperature: Warm (05/26/2016 10:34:Nu Wynn RN) Skin Moisture: Dry (05/26/2016 10:34:Nu Wynn RN) IGLESIA SKIN ASSESSMENT Iglesia Scale Sensory Perception: No Impairment- Responds to verbal commands. Has no sensory deficit which would limit ability to feel or voice pain or discomfort (05/26/2016 10:34:Nu Wynn RN) Iglesia Scale Moisture: Rarely Moist- Skin is usually dry. Linen only requires changing at routine intervals (05/26/2016 10:34:Nu Wynn RN) Iglesia Scale Activity: Walks Frequently- Walks outside the room at least twice a day and inside room at least every 2 hours during the day. (05/26/2016 10:34:Nu Wynn RN) Iglesia Scale Mobility: No Limitations- Makes major and frequent changes in position without assistance (05/26/2016 10:34:Nu Wynn RN) Iglesia Scale Nutrition: Excellent- Eats most of every meal. Never refuses a meal. Usually eats a total of 4 or more servings of meat and dairy products. Occasionally eats between meals. Does not require supplementation (05/26/2016 10:34:Nu Wynn RN) Iglesia Scale Friction and Shear: No Apparent Problem- Moves in bed and in chair independently and has sufficient muscle strength to lift up completely during move. Maintains good position in bed or chair at all times (05/26/2016 10:34:Nu Broman, RN) Iglesia Scale Total: 23 (05/26/2016 10:34:QS system process) Iglesia Scale Risk: No Risk of Pressure Ulcer Noted at this Time (05/26/2016 10:34:QS system process) SUPPORT Family Support: Significant Other supportive, at bedside frequently (05/26/2016 10:34:Nu Wynn, RN) Emotional State: Calm/Relaxed (05/26/2016 10:34:Nu Bromlyn, RN) SAFETY Call [place] Within Reach: Yes (05/26/2016 10:34:Nu Wynn, RN) Side Rails Up: Yes (05/26/2016 10:34:Nu Wynn RN) Bed Wheels Locked: Yes (05/26/2016 10:34:Nu Wynn RN) Arm Bands Present: Yes (05/26/2016 10:34:Nu Bromlyn, RN) Isolation: [place] (05/26/2016 10:34:Nu Broman, RN) FALL SCREEN Fall Risk History of Falling: (0) No (05/26/2016 10:34:Nu Wynn RN) Fall Risk Secondary Diagnosis: (0) No (05/26/2016 10:34:Nu Wynn RN) Fall Risk Ambulatory Aid: (0) None/Bedrest/Wheelchair/Nurse Assist (05/26/2016 10:34:Nu Wynn RN) Fall Risk IV Therapy: (0) No (05/26/2016 10:34:Nu Wynn RN) Fall Risk Gait: (0) Normal/Bedrest/Immobile (05/26/2016 10:34:Nu Wynn RN) Fall Risk Mental Status: (0) Oriented to Own Ability (05/26/2016 10:34:Nu Wynn RN) Fall Risk Score: 0 (05/26/2016 10:34:QS system process) Fall Risk Score Definition: No Risk: No action required (05/26/2016 10:34:QS system process) BABY A FHR Baseline Rate (bpm) Baby A: 145 (05/26/2016 11:30:Nu Wynn RN) FHR Baseline Rate (bpm) Baby A: 150 (05/26/2016 11:00:Nu Wynn RN) Variability Baby A: Moderate 6-25 bpm (05/26/2016 11:30:Nu Wynn RN) Variability Baby A: Moderate 6-25 bpm (05/26/2016 11:00:Nu Wynn RN) Accelerations Baby A: 15X15 (05/26/2016 11:30:Nu Wynn RN) Accelerations Baby A: 15X15 (05/26/2016 11:00:Nu Wynn RN) Decelerations Baby A: None (05/26/2016 11:30:Nu Wynn RN) Decelerations Baby A: None (05/26/2016 11:00:Nu Wynn RN)
--- NOTE | 2016-05-28 04:48 | L&D Discharge Summary ---
OB Discharge Summary Datetime Report Generated by CPN: 05/28/2016 04:46 DISCHARGE DIAGNOSIS Diagnosis/Symptoms: False Labor Gestation: 33.0 Number of Babies in Womb: 1 Parity: 0 DIET/ACTIVITY/RESTRICTIONS Diet: Regular Activity: Normal Activity TEACHING/INSTRUCTIONS/REFERRALS Instructions Given To: Patient, Instructions Understood: Patient Verbalized Understanding; Support Person Verbalized Understanding Referrals: None Educational Materials- Other: Kick Counts, Labor DISCHARGE INFORMATION Discharged AMA: No Discharge Date/Time: 05/26/2016 12:00 Discharged To: Home Discharge Provider Name: Dr. ChaMono Accompanied By: Discharge Method: Ambulatory Condition: Stable FOLLOW UP INFORMATION Follow Up With: [facility] Follow Up On: As Scheduled Follow Up Phone Number: [facility] - GENERAL INSTR-CALL PROVIDER IF: Contractions: Contractions or cramps become more frequent than 8 in one hour or 4 in 20 minutes; Regular painful contractions every 5 minutes or less for one hour. Time your contractions from the beginning of one to the beginning of the next Pressure: Pressure in your vagina or lower abdomen that may feel like the baby is pushing down Gush of Fluid/Blood: Gush of fluid or blood from your vagina (it is normal to have spotting after vaginal exam or intercourse) Vaginal Discharge: Change in the type or amount of vaginal discharge Decreased Movement: Your baby is not moving as much as usual- 4 movements in 1 hour after drinking and resting on side
--- NOTE | 2016-05-28 04:48 | L&D General Admission ---
General Admit Datetime Report Generated by CPN: 05/28/2016 04:46 INFORMATION Patient Age: 26 (04/30/2016 09:39:QS system process) EDC: 07/14/2016 00:00 (05/26/2016 10:16:Nu Wynn RN) : 1 (05/26/2016 10:16:Nu Wynn RN) Para: 0 (05/26/2016 10:16:Nu Wynn RN) Term: 0 (05/26/2016 10:16:Nu Wynn RN) : 0 (05/26/2016 10:16:Nu Wynn RN) Spontaneous Abortions: 0 (05/26/2016 10:16:Nu Wynn RN) Induced Abortions: 0 (05/26/2016 10:16:Nu Wynn RN) Livin (05/26/2016 10:16:Nu Wynn RN) Cesareans: 0 (05/26/2016 10:16:Nu Wynn RN) VBACs: 0 (05/26/2016 10:16:uN Wynn RN) Ectopic: 0 (05/26/2016 10:16:Nu Wynn RN) Multiple Births: 0 (05/26/2016 10:16:Nu Wynn RN) Baby, Number in Womb: 1 (05/26/2016 10:16:Nu Wynn RN) CARE [facility] Pressure Controller[facility] (05/26/2016 10:16:Nu Wynn RN) Adequate Care: Yes (05/26/2016 10:16:Nu Wynn RN) Height (in): 64 (05/26/2016 10:58:QS system process) ALLERGIES Medication Allergy: Yes (05/26/2016 10:16:Nu Wynn RN) Medication Allergies: amoxicillin trihydrate (05/26/2016); Potassium Clavulanate * (05/26/2016) (05/26/2016 10:53:QS system process) Medication Allergies: amoxicillin trihydrate (12/03/2015); Potassium Clavulanate * (12/03/2015) (04/30/2016 09:39:QS system process) Latex Allergy: No Latex Allergies (05/26/2016 10:16:Nu Wynn RN) COMMUNICATION Primary Language: Macedonian (05/26/2016 10:16:Nu Wynn RN) Medical Tx Preferred Language: Macedonian (05/26/2016 10:16:Nu Wynn RN) Communication Barrier(s): None (05/26/2016 10:16:Nu Wynn RN) DEMOGRAPHICS Address: [address] [place] [address] (04/30/2016 09:39:QS system process) Zipcode: [address] (04/30/2016 09:39:QS system process) Home (04/30/2016 09:39:QS system process) SSN: [id number] (04/30/2016 09:39:QS system process) Next of Kin Name: FILIPE PALOMO (04/30/2016 09:39:QS system process) Next of Kin (04/30/2016 09:39:QS system process) Next of Kin Relationship: FA (04/30/2016 09:39:QS system process) Date of : 1990 (04/30/2016 09:39:QS system process) Marital Status: (04/30/2016 09:39:QS system process) Sex: Female (04/30/2016 09:39:QS system process) Race: (04/30/2016 09:39:QS system process) Ethnicity: Non- or (04/30/2016 09:39:QS system process) Shinto: None (04/30/2016 09:39:QS system process) DRUG AND ALCOHOL USE Alcohol: No (05/26/2016 10:16:Nu Wynn RN) Cigarettes: Never Smoker. [id number] (05/26/2016 10:16:Nu Wynn RN) Marijuana: No (05/26/2016 10:16:Nu Wynn RN) Cocaine: No (05/26/2016 10:16:Nu Wynn RN) Other Illicit Drugs: No (05/26/2016 10:16:Nu Wynn RN) VACCINE HISTORY Influenza Vaccine: Yes (05/26/2016 10:16:Nu Wynn RN) Influenza Date: 11/2015 (05/26/2016 10:16:Nu Wynn RN) Pneumococcal Vaccine: No (05/26/2016 10:16:Nu Wynn RN) Tetanus Vaccine: Yes (05/26/2016 10:16:Nu Wynn RN) Tdap Vaccine: Yes (05/26/2016 10:16:Nu Wynn RN) Hepatitis B Vaccine: Uncertain (05/26/2016 10:16:Nu Wynn RN) Drop Clipper: [facility] (05/26/2016 10:16:Nu Wynn RN) Feeding Preference: Breast (05/26/2016 10:16:Nu Wynn RN) Benefit of Breast Feed Discussed: Yes (05/26/2016 10:16:Nu Wynn RN) Circumcision: No (05/26/2016 10:16:Nu Wynn RN) Classes Attended: Yes (05/26/2016 10:16:Nu Wynn RN) Tubal Ligation: No (05/26/2016 10:16:Nu Wynn RN) Consent: N/A (05/26/2016 10:16:Nu Wynn RN) Pain Management Plans: Epidural (05/26/2016 10:16:Nu Wynn RN) Plans for Labor and Delivery: Cord Blood Donation (05/26/2016 10:16:Nu Wynn RN) Support Person: Vincent (05/26/2016 10:16:Nu Wynn RN) Support Person Relationship: (05/26/2016 10:16:Nu Wynn RN) Cultural/Spritual Practice: No (05/26/2016 10:16:Nu Wynn RN) Spir/Cult Dietary Needs: No (05/26/2016 10:16:Nu Wynn RN) LIVING SITUATION/DISCHARGE PLAN Living Arrangements: Apartment (05/26/2016 10:16:Nu Wynn RN) Adequate Access to:: Electric; Heat; Refrigeration; Plumbing/Running water; Phone; Transportation (05/26/2016 10:16:Nu Wynn RN) WIC Program: Yes (05/26/2016 10:16:Nu Wynn RN) Discharge Devops Engineer Person: (05/26/2016 10:16:Nu Wynn RN) Person to Help after Discharge: (05/26/2016 10:16:Nu Wynn RN) Currently Using Commun Resources: Yes (05/26/2016 10:16:Nu Wynn RN) Specify Current Resource Used: Medicaid, Food/Nutrition (05/26/2016 10:16:Nu Wynn RN) Outside Agency/Business Analyst Sales Operations: No (05/26/2016 10:16:Nu Wynn RN) Car Seat for Discharge: Yes (05/26/2016 10:16:Nu Wynn RN) Adoption Requested: No (05/26/2016 10:16:Nu Wynn RN) Pt Contact w/ Post : N/A (05/26/2016 10:16:Nu Wynn RN) LABS Blood Type: B Positive (05/26/2016 10:16:Nu Wynn RN) Antibody Screen: Negative (05/26/2016 10:16:Nu Wynn RN) Gonorrhea: Negative (05/26/2016 10:16:Nu Wynn RN) Chlamydia: Negative (05/26/2016 10:16:Nu Wynn RN) RPR/VDRL: Nonreactive (05/26/2016 10:16:Nu Wynn RN) HIV Exposure Test: Negative (05/26/2016 10:16:Nu Wynn RN) HIV Results: Negative (05/26/2016 10:16:Nu Wynn RN) Hepatitis B: Negative (05/26/2016 10:16:Nu Wynn RN) Rubella: Immune (05/26/2016 10:16:Nu Wynn RN) OB/PREVIOUS HISTORY Previous Procedures: None (05/26/2016 10:16:Nu Wynn RN) Current Procedures: Ultrasound (05/26/2016 10:16:Nu Wynn RN) History of Previous : No (05/26/2016 10:16:Nu Wynn RN) History of Gestational Diabetes: Yes (05/26/2016 10:16:Nu Wynn RN) History of PIH: No (05/26/2016 10:16:Nu Wynn RN) History of Incompetent Cervix: No (05/26/2016 10:16:Nu Wynn RN) History of Placenta Previa/Abrup: No (05/26/2016 10:16:Nu Wynn RN) History of Macrosomia: No (05/26/2016 10:16:Nu Wynn RN) History of IUGR: No (05/26/2016 10:16:Nu Wynn RN) History of Hemorrhage: No (05/26/2016 10:16:Nu Wynn RN) History of Loss/Stillborn: No (05/26/2016 10:16:Nu Wynn RN) History of : No (05/26/2016 10:16:Nu Wynn RN) History of D (Rh) Sensitization: No (05/26/2016 10:16:Nu Wynn RN) History Recurrent Loss/Stillborn: No (05/26/2016 10:16:Nu Wynn RN) History Depression/PP Depression: No (05/26/2016 10:16:Nu Wynn RN) History of Uterine Anomaly/GUME: No (05/26/2016 10:16:Nu Wynn RN) History of Infertility: No (05/26/2016 10:16:Nu Wynn RN) History of ART Treatment: No (05/26/2016 10:16:Nu Wynn RN) History of GUME: No (05/26/2016 10:16:Nu Wynn RN) Comments Obstetrical History: G1 - Current GDM diet controlled (05/26/2016 10:16:Nu Wynn RN) MEDICAL HISTORY Med Hx Diabetes: No (05/26/2016 10:16:Nu Wynn RN) Med Hx Hypertension: Yes (05/26/2016 10:16:Nu Wynn RN) Med Hx Heart Disease: No (05/26/2016 10:16:Nu Wynn RN) Med Hx Autoimmune Disorder: No (05/26/2016 10:16:Nu Wynn RN) Med Hx Kidney Disease/UTI: No (05/26/2016 10:16:Nu Wynn RN) Med Hx Neurologic/Epilepsy: No (05/26/2016 10:16:Nu Wynn RN) Med Hx Psychiatric Disorders: No (05/26/2016 10:16:Nu Wynn RN) Med Hx Hepatitis/Liver Disease: No (05/26/2016 10:16:Nu Wynn RN) Med Hx Varicosities/Phlebitis: No (05/26/2016 10:16:Nu Wynn RN) Med Hx Thyroid Dysfunction: No (05/26/2016 10:16:Nu Wynn RN) Med Hx Trauma/Violence: No (05/26/2016 10:16:Nu Wynn RN) Med Hx Blood Transfusion: No (05/26/2016 10:16:Nu Wynn RN) Med Hx Pulmonary (Asthma,TB): No (05/26/2016 10:16:Nu Wynn RN) Med Hx Breast: No (05/26/2016 10:16:Nu Wynn RN) Med 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: No (05/26/2016 10:16:Nu Wynn RN) Med Hx Hospitalization/Surgery: Yes (05/26/2016 10:16:Nu Wynn RN) Med Hx Anesthetic Complications: No (05/26/2016 10:16:Nu Wynn RN) Med Hx Abnormal Pap Smear: No (05/26/2016 10:16:Nu Wynn RN) Other Medical Diseases: No (05/26/2016 10:16:Nu Wynn RN) Med Hx Significant Family Hx: No (05/26/2016 10:16:Nu Wynn RN) INFECTIOUS HISTORY Inf Hx Gonorrhea: No (05/26/2016 10:16:Nu Wynn RN) Inf Hx Chlamydia: No (05/26/2016 10:16:Nu Wynn RN) Inf Hx Syphilis: No (05/26/2016 10:16:Nu Wynn RN) Inf Hx HIV/AIDS: No (05/26/2016 10:16:Nu Wynn RN) Inf Hx Human Papilloma Virus: No (05/26/2016 10:16:Nu Wynn RN) Inf Hx Pt/Partner Genital Herpes: No (05/26/2016 10:16:Nu Wynn RN) Inf Hx Tuberculosis/Exposure: No (05/26/2016 10:16:Nu Wynn RN) Inf Hx Hepatitis B,C: No (05/26/2016 10:16:Nu Wynn RN) Inf Hx Rash or Viral Illness: No (05/26/2016 10:16:Nu Wynn RN) GENETIC HISTORY Gen Hx Age >=35 at CLAU: No (05/26/2016 10:16:Nu Wynn RN) Gen Hx Thalassemia: No (05/26/2016 10:16:Nu Wynn RN) Gen Hx Congenital Heart Defect: No (05/26/2016 10:16:Nu Wynn RN) Gen Hx Neural Tube Defect: No (05/26/2016 10:16:Nu Wynn RN) Gen Hx Down's Syndrome: No (05/26/2016 10:16:Nu Wynn RN) Gen Hx Jacky-Sachs: No (05/26/2016 10:16:Nu Wynn RN) Gen Hx Destin: No (05/26/2016 10:16:Nu Wynn RN) Gen Hx Familial Dysautonomia: No (05/26/2016 10:16:Nu Wynn RN) Gen Hx Sickle Cell Disease/Trait: Yes (05/26/2016 10:16:Nu Wynn RN) Gen Hx Hemophilia/Blood Disorder: No (05/26/2016 10:16:Nu Wynn RN) Gen Hx Muscular Dystrophy: No (05/26/2016 10:16:Nu Wynn RN) Gen Hx Cystic Fibrosis: No (05/26/2016 10:16:Nu Wynn RN) Gen Hx [place] Chorea: No (05/26/2016 10:16:Nu Wynn RN) Gen Hx Mental Retardation/Autism: No (05/26/2016 10:16:Nu Wynn RN) Gen Hx Tested for Fragile X: No (05/26/2016 10:16:Nu Wynn RN) Gen Hx Other Inher/Chromosomal: No (05/26/2016 10:16:Nu Wynn RN) Gen Hx Maternal Metabolic DO: No (05/26/2016 10:16:Nu Wynn RN) Gen Hx Pt Father or FOB Defect: No (05/26/2016 10:16:Nu Wynn RN) Gen Hx Other Genetic History: No (05/26/2016 10:16:Nu Wynn RN) Gen Hx Drugs/Meds since LMP: No (05/26/2016 10:16:Nu Wynn RN) Details of Genetic History: Sickle Cell Disease - Maternal Mother (05/26/2016 10:16:Nu Wynn RN)
--- NOTE | 2016-05-28 04:48 | Antepartum Discharge Summary ---
Antepartum DC Datetime Report Generated by CPN: 05/28/2016 04:46 DIET/ACTIVITY/RESTRICTIONS Diet: Regular (05/26/2016 12:00:Nu Broman, RN) Activity: Normal Activity (05/26/2016 12:00:Nu Broman, RN) TEACHING/INSTRUCTIONS/REFERRALS Instructions Given To: Patient, (05/26/2016 12:00:Nu Broman, RN) Instructions Understood: Patient Verbalized Understanding; Support Person Verbalized Understanding (05/26/2016 12:00:Nu Broman, RN) Referrals: None (05/26/2016 12:00:Nu Wynn RN) Educational Materials- Other: Kick Counts, Labor (05/26/2016 12:00:Nu Wynn RN) DISCHARGE INFORMATION Discharged AMA: No (05/26/2016 12:00:Nu Wynn RN) Discharge Date/Time: 05/26/2016 12:00 (05/26/2016 12:00:Nu Wynn RN) Discharged To: Home (05/26/2016 12:00:Nu Wynn RN) Discharge Provider Name: Dr. Villareal (05/26/2016 12:00:Nu Wynn RN) Accompanied By: (05/26/2016 12:00:Nu Wynn RN) Discharge Method: Ambulatory (05/26/2016 12:00:Nu Wynn RN) Condition: Stable (05/26/2016 12:00:Nu Wynn RN) FOLLOW UP INFORMATION Follow Up With: [facility] (05/26/2016 12:00:Nu Wynn RN) Follow Up On: As Scheduled (05/26/2016 12:00:Nu Wynn RN) Follow Up Phone Number: [facility] - (05/26/2016 12:00:Nu Wynn RN) GENERAL INSTR-CALL PROVIDER IF: Contractions: Contractions or cramps become more frequent than 8 in one hour or 4 in 20 minutes; Regular painful contractions every 5 minutes or less for one hour. Time your contractions from the beginning of one to the beginning of the next (05/26/2016 12:00:Nu Wynn RN) Pressure: Pressure in your vagina or lower abdomen that may feel like the baby is pushing down (05/26/2016 12:00:Nu Wynn RN) Gush of Fluid/Blood: Gush of fluid or blood from your vagina (it is normal to have spotting after vaginal exam or intercourse) (05/26/2016 12:00:Nu Wynn RN) Vaginal Discharge: Change in the type or amount of vaginal discharge (05/26/2016 12:00:Nu Wynn RN) Decreased Movement: Your baby is not moving as much as usual- 4 movements in 1 hour after drinking and resting on side (05/26/2016 12:00:Nu Wynn RN)
--- NOTE | 2016-05-28 04:48 | L&D Current Admission ---
Current Admit Datetime Report Generated by CPN: 05/28/2016 04:46 ADMISSION INFORMATION Chief Complaint: Contractions (05/26/2016 10:34:Nu Kingsley, RN)
--- NOTE | 2016-05-28 10:48 | L&D Current Admission ---
Current Admit Datetime Report Generated by CPN: 05/28/2016 10:45 ADMISSION INFORMATION Chief Complaint: Contractions (05/26/2016 10:34:Nu Kingsley, RN)
--- NOTE | 2016-05-28 10:48 | L&D Admission Assessment ---
LD ADM ASMT Datetime Report Generated by CPN: 05/28/2016 10:45 Weight (lb): 202 (05/26/2016 10:58:QS system process) Weight (kg): 91.8 (05/26/2016 10:58:QS system process) Frequency (min): none (05/26/2016 11:30:Nu Wynn RN) Frequency (min): none (05/26/2016 11:00:Nu Wynn RN) Quality: Mild (05/26/2016 11:30:Numakenzie Wynn RN) Quality: Mild (05/26/2016 11:00:Numakenzie Wynn, RN) Resting Tone Newcomb: Relaxed (05/26/2016 11:30:Nu Wynn RN) Resting Tone Newcomb: Relaxed (05/26/2016 11:00:Numakenzie Wynn RN) Dilatation (cm): 0.0 (05/26/2016 11:47:Nu Wynn, RN) Effacement (%): 0 (05/26/2016 11:47:Nu Wynn RN) FHR Baseline Rate (bpm) Baby A: 145 (05/26/2016 11:30:Nu Bromlyn, RN) FHR Baseline Rate (bpm) Baby A: 150 (05/26/2016 11:00:Nu Bromlyn, RN) Variability Baby A: Moderate 6-25 bpm (05/26/2016 11:30:Nu Bromlyn, RN) Variability Baby A: Moderate 6-25 bpm (05/26/2016 11:00:Nu Bromlyn, RN) Accelerations Baby A: 15X15 (05/26/2016 11:30:Nu Broman, RN) Accelerations Baby A: 15X15 (05/26/2016 11:00:Nu Wynn RN) Decelerations Baby A: None (05/26/2016 11:30:Nu Wynn RN) Decelerations Baby A: None (05/26/2016 11:00:Nu Wynn RN)
--- NOTE | 2016-05-28 10:48 | L&D General Admission ---
General Admit Datetime Report Generated by CPN: 05/28/2016 10:45 INFORMATION Patient Age: 26 (04/30/2016 09:39:QS system process) EDC: 07/14/2016 00:00 (05/26/2016 10:16:Nu Wynn RN) : 1 (05/26/2016 10:16:Nu Wynn RN) Para: 0 (05/26/2016 10:16:Nu Wynn RN) Term: 0 (05/26/2016 10:16:Nu Wynn RN) : 0 (05/26/2016 10:16:Nu Wynn RN) Spontaneous Abortions: 0 (05/26/2016 10:16:Nu Wynn RN) Induced Abortions: 0 (05/26/2016 10:16:Nu Wynn RN) Livin (05/26/2016 10:16:Nu Wynn RN) Cesareans: 0 (05/26/2016 10:16:Nu Wynn RN) VBACs: 0 (05/26/2016 10:16:Nu Wynn RN) Ectopic: 0 (05/26/2016 10:16:Nu Wynn RN) Multiple Births: 0 (05/26/2016 10:16:Nu Wynn RN) Baby, Number in Womb: 1 (05/26/2016 10:16:Nu Wynn RN) CARE Primary Support [facility] (05/26/2016 10:16:Nu Wynn RN) Adequate Care: Yes (05/26/2016 10:16:Nu Wynn RN) Height (in): 64 (05/26/2016 10:58:QS system process) ALLERGIES Medication Allergy: Yes (05/26/2016 10:16:Nu Wynn RN) Medication Allergies: amoxicillin trihydrate (05/26/2016); Potassium Clavulanate * (05/26/2016) (05/26/2016 10:53:QS system process) Medication Allergies: amoxicillin trihydrate (12/03/2015); Potassium Clavulanate * (12/03/2015) (04/30/2016 09:39:QS system process) Latex Allergy: No Latex Allergies (05/26/2016 10:16:Nu Wynn RN) COMMUNICATION Primary Language: Sami (05/26/2016 10:16:Nu Wynn RN) Medical Tx Preferred Language: Sami (05/26/2016 10:16:Nu Wynn RN) Communication Barrier(s): None (05/26/2016 10:16:Nu Wynn RN) DEMOGRAPHICS Address: [address] [place] [address] (04/30/2016 09:39:QS system process) Zipcode: [address] (04/30/2016 09:39:QS system process) Home (04/30/2016 09:39:QS system process) SSN: [id number] (04/30/2016 09:39:QS system process) Next of Kin Name: FILIPE PALOMO (04/30/2016 09:39:QS system process) Next of Kin (04/30/2016 09:39:QS system process) Next of Kin Relationship: FA (04/30/2016 09:39:QS system process) Date of : 1990 (04/30/2016 09:39:QS system process) Marital Status: (04/30/2016 09:39:QS system process) Sex: Female (04/30/2016 09:39:QS system process) Race: (04/30/2016 09:39:QS system process) Ethnicity: Non- or (04/30/2016 09:39:QS system process) Religious: None (04/30/2016 09:39:QS system process) DRUG AND ALCOHOL USE Alcohol: No (05/26/2016 10:16:Nu Wynn RN) Cigarettes: Never Smoker. [id number] (05/26/2016 10:16:Nu Wynn RN) Marijuana: No (05/26/2016 10:16:Nu Wynn RN) Cocaine: No (05/26/2016 10:16:Nu Wynn RN) Other Illicit Drugs: No (05/26/2016 10:16:Nu Wynn RN) VACCINE HISTORY Influenza Vaccine: Yes (05/26/2016 10:16:Nu Wynn RN) Influenza Date: 11/2015 (05/26/2016 10:16:Nu Wynn RN) Pneumococcal Vaccine: No (05/26/2016 10:16:Nu Wynn RN) Tetanus Vaccine: Yes (05/26/2016 10:16:Nu Wynn RN) Tdap Vaccine: Yes (05/26/2016 10:16:Nu Wynn RN) Hepatitis B Vaccine: Uncertain (05/26/2016 10:16:Nu Wynn RN) Radio Communication Coordinator: [facility] (05/26/2016 10:16:Nu Wynn RN) Feeding Preference: Breast (05/26/2016 10:16:Nu Wynn RN) Benefit of Breast Feed Discussed: Yes (05/26/2016 10:16:Nu Wynn RN) Circumcision: No (05/26/2016 10:16:Nu Wynn RN) Classes Attended: Yes (05/26/2016 10:16:Nu Wynn RN) Tubal Ligation: No (05/26/2016 10:16:Nu Wynn RN) Consent: N/A (05/26/2016 10:16:Nu Wynn RN) Pain Management Plans: Epidural (05/26/2016 10:16:Nu Wynn RN) Plans for Labor and Delivery: Cord Blood Donation (05/26/2016 10:16:Nu Wynn RN) Support Person: Vincent (05/26/2016 10:16:Nu Wynn RN) Support Person Relationship: (05/26/2016 10:16:Nu Wynn RN) Cultural/Spritual Practice: No (05/26/2016 10:16:Nu Wynn RN) Spir/Cult Dietary Needs: No (05/26/2016 10:16:Nu Wynn RN) LIVING SITUATION/DISCHARGE PLAN Living Arrangements: Apartment (05/26/2016 10:16:Nu Wynn RN) Adequate Access to:: Electric; Heat; Refrigeration; Plumbing/Running water; Phone; Transportation (05/26/2016 10:16:Nu Wynn RN) WIC Program: Yes (05/26/2016 10:16:Nu Wynn RN) Discharge Tipple Repairer Person: (05/26/2016 10:16:Nu Wynn RN) Person to Help after Discharge: (05/26/2016 10:16:Nu Wynn RN) Currently Using Commun Resources: Yes (05/26/2016 10:16:Nu Wynn RN) Specify Current Resource Used: Medicaid, Food/Nutrition (05/26/2016 10:16:Nu Wynn RN) Outside Agency/Ukrainian Folk Arts Instructor: No (05/26/2016 10:16:Nu Wynn RN) Car Seat for Discharge: Yes (05/26/2016 10:16:Nu Wynn RN) Adoption Requested: No (05/26/2016 10:16:Nu Wynn RN) Pt Contact w/ Post : N/A (05/26/2016 10:16:Nu Wynn RN) LABS Blood Type: B Positive (05/26/2016 10:16:Nu Wynn RN) Antibody Screen: Negative (05/26/2016 10:16:Nu Wynn RN) Gonorrhea: Negative (05/26/2016 10:16:Nu Wynn RN) Chlamydia: Negative (05/26/2016 10:16:Nu Wynn RN) RPR/VDRL: Nonreactive (05/26/2016 10:16:Nu Wynn RN) HIV Exposure Test: Negative (05/26/2016 10:16:Nu Wynn RN) HIV Results: Negative (05/26/2016 10:16:Nu Wynn RN) Hepatitis B: Negative (05/26/2016 10:16:Nu Wynn RN) Rubella: Immune (05/26/2016 10:16:Nu Wynn RN) OB/PREVIOUS HISTORY Previous Procedures: None (05/26/2016 10:16:Nu Wynn RN) Current Procedures: Ultrasound (05/26/2016 10:16:Nu Wynn RN) History of Previous : No (05/26/2016 10:16:Nu Wynn RN) History of Gestational Diabetes: Yes (05/26/2016 10:16:Nu Wynn RN) History of PIH: No (05/26/2016 10:16:Nu Wynn RN) History of Incompetent Cervix: No (05/26/2016 10:16:Nu Wynn RN) History of Placenta Previa/Abrup: No (05/26/2016 10:16:Nu Wynn RN) History of Macrosomia: No (05/26/2016 10:16:Nu Wynn RN) History of IUGR: No (05/26/2016 10:16:Nu Wynn RN) History of Hemorrhage: No (05/26/2016 10:16:Nu Wynn RN) History of Loss/Stillborn: No (05/26/2016 10:16:Nu Wynn RN) History of : No (05/26/2016 10:16:Nu Wynn RN) History of D (Rh) Sensitization: No (05/26/2016 10:16:Nu Wynn RN) History Recurrent Loss/Stillborn: No (05/26/2016 10:16:Nu Wynn RN) History Depression/PP Depression: No (05/26/2016 10:16:Nu Wynn RN) History of Uterine Anomaly/GUME: No (05/26/2016 10:16:Nu Wynn RN) History of Infertility: No (05/26/2016 10:16:Nu Wynn RN) History of ART Treatment: No (05/26/2016 10:16:Nu Wynn RN) History of GUME: No (05/26/2016 10:16:Nu Wynn RN) Comments Obstetrical History: G1 - Current GDM diet controlled (05/26/2016 10:16:Nu Wynn RN) MEDICAL HISTORY Med Hx Diabetes: No (05/26/2016 10:16:Nu Wynn RN) Med Hx Hypertension: Yes (05/26/2016 10:16:Nu Wynn RN) Med Hx Heart Disease: No (05/26/2016 10:16:Nu Wynn RN) Med Hx Autoimmune Disorder: No (05/26/2016 10:16:Nu Wynn RN) Med Hx Kidney Disease/UTI: No (05/26/2016 10:16:Nu Wynn RN) Med Hx Neurologic/Epilepsy: No (05/26/2016 10:16:Nu Wynn RN) Med Hx Psychiatric Disorders: No (05/26/2016 10:16:Nu Wynn RN) Med Hx Hepatitis/Liver Disease: No (05/26/2016 10:16:Nu Wynn RN) Med Hx Varicosities/Phlebitis: No (05/26/2016 10:16:Nu Wynn RN) Med Hx Thyroid Dysfunction: No (05/26/2016 10:16:Nu Wynn RN) Med Hx Trauma/Violence: No (05/26/2016 10:16:Nu Wynn RN) Med Hx Blood Transfusion: No (05/26/2016 10:16:Nu Wynn RN) Med Hx Pulmonary (Asthma,TB): No (05/26/2016 10:16:Nu Wynn RN) Med Hx Breast: No (05/26/2016 10:16:Nu Wynn RN) 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 (05/26/2016 10:16:Nu Wynn RN) Med Hx Hospitalization/Surgery: Yes (05/26/2016 10:16:Nu Wynn RN) Med Hx Anesthetic Complications: No (05/26/2016 10:16:Nu Wynn RN) Med Hx Abnormal Pap Smear: No (05/26/2016 10:16:Nu Wynn RN) Other Medical Diseases: No (05/26/2016 10:16:Nu Wynn RN) Med Hx Significant Family Hx: No (05/26/2016 10:16:Nu Wynn RN) INFECTIOUS HISTORY Inf Hx Gonorrhea: No (05/26/2016 10:16:Nu Wynn RN) Inf Hx Chlamydia: No (05/26/2016 10:16:Nu Wynn RN) Inf Hx Syphilis: No (05/26/2016 10:16:Nu Wynn RN) Inf Hx HIV/AIDS: No (05/26/2016 10:16:Nu Wynn RN) Inf Hx Human Papilloma Virus: No (05/26/2016 10:16:Nu Wynn RN) Inf Hx Pt/Partner Genital Herpes: No (05/26/2016 10:16:Nu Wynn RN) Inf Hx Tuberculosis/Exposure: No (05/26/2016 10:16:Nu Wynn RN) Inf Hx Hepatitis B,C: No (05/26/2016 10:16:Nu Wynn RN) Inf Hx Rash or Viral Illness: No (05/26/2016 10:16:Nu Wynn RN) GENETIC HISTORY Gen Hx Age >=35 at CLAU: No (05/26/2016 10:16:Nu Wynn RN) Gen Hx Thalassemia: No (05/26/2016 10:16:Nu Wynn RN) Gen Hx Congenital Heart Defect: No (05/26/2016 10:16:Nu Wynn RN) Gen Hx Neural Tube Defect: No (05/26/2016 10:16:Nu Wynn RN) Gen Hx Down's Syndrome: No (05/26/2016 10:16:Nu Wynn RN) Gen Hx Jacky-Sachs: No (05/26/2016 10:16:Nu Wynn RN) Gen Hx Destin: No (05/26/2016 10:16:Nu Wynn RN) Gen Hx Familial Dysautonomia: No (05/26/2016 10:16:Nu Wynn RN) Gen Hx Sickle Cell Disease/Trait: Yes (05/26/2016 10:16:Nu Wynn RN) Gen Hx Hemophilia/Blood Disorder: No (05/26/2016 10:16:Nu Wynn RN) Gen Hx Muscular Dystrophy: No (05/26/2016 10:16:Nu Wynn RN) Gen Hx Cystic Fibrosis: No (05/26/2016 10:16:Nu Wynn RN) Gen Hx Huntingtons Chorea: No (05/26/2016 10:16:Nu Wynn RN) Gen Hx Mental Retardation/Autism: No (05/26/2016 10:16:Nu Wynn RN) Gen Hx Tested for Fragile X: No (05/26/2016 10:16:Nu Wynn RN) Gen Hx Other Inher/Chromosomal: No (05/26/2016 10:16:Nu Wynn RN) Gen Hx Maternal Metabolic DO: No (05/26/2016 10:16:Nu Wynn RN) Gen Hx Pt Father or FOB Defect: No (05/26/2016 10:16:Nu Wynn RN) Gen Hx Other Genetic History: No (05/26/2016 10:16:Nu Wynn RN) Gen Hx Drugs/Meds since LMP: No (05/26/2016 10:16:Nu Wynn RN) Details of Genetic History: Sickle Cell Disease - Maternal Mother (05/26/2016 10:16:Nu Wynn RN)
--- NOTE | 2016-05-28 10:48 | L&D Discharge Summary ---
OB Discharge Summary Datetime Report Generated by CPN: 05/28/2016 10:45 DISCHARGE DIAGNOSIS Diagnosis/Symptoms: False Labor Gestation: 33.0 Number of Babies in Womb: 1 Parity: 0 DIET/ACTIVITY/RESTRICTIONS Diet: Regular Activity: Normal Activity TEACHING/INSTRUCTIONS/REFERRALS Instructions Given To: Patient, Instructions Understood: Patient Verbalized Understanding; Support Person Verbalized Understanding Referrals: None Educational Materials- Other: Kick Counts, Labor DISCHARGE INFORMATION Discharged AMA: No Discharge Date/Time: 05/26/2016 12:00 Discharged To: Home Discharge Provider Name: Dr. ChaMono Accompanied By: Discharge Method: Ambulatory Condition: Stable FOLLOW UP INFORMATION Follow Up With: [facility] Follow Up On: As Scheduled Follow Up Phone Number: [facility] - GENERAL INSTR-CALL PROVIDER IF: Contractions: Contractions or cramps become more frequent than 8 in one hour or 4 in 20 minutes; Regular painful contractions every 5 minutes or less for one hour. Time your contractions from the beginning of one to the beginning of the next Pressure: Pressure in your vagina or lower abdomen that may feel like the baby is pushing down Gush of Fluid/Blood: Gush of fluid or blood from your vagina (it is normal to have spotting after vaginal exam or intercourse) Vaginal Discharge: Change in the type or amount of vaginal discharge Decreased Movement: Your baby is not moving as much as usual- 4 movements in 1 hour after drinking and resting on side
--- NOTE | 2016-05-28 10:48 | Antepartum Discharge Summary ---
Antepartum DC Datetime Report Generated by CPN: 05/28/2016 10:45 DIET/ACTIVITY/RESTRICTIONS Diet: Regular (05/26/2016 12:00:Nu Broman, RN) Activity: Normal Activity (05/26/2016 12:00:Nu Broman, RN) TEACHING/INSTRUCTIONS/REFERRALS Instructions Given To: Patient, (05/26/2016 12:00:Nu Broman, RN) Instructions Understood: Patient Verbalized Understanding; Support Person Verbalized Understanding (05/26/2016 12:00:Nu Broman, RN) Referrals: None (05/26/2016 12:00:Nu Wynn RN) Educational Materials- Other: Kick Counts, Labor (05/26/2016 12:00:Nu Wynn RN) DISCHARGE INFORMATION Discharged AMA: No (05/26/2016 12:00:Nu Wynn RN) Discharge Date/Time: 05/26/2016 12:00 (05/26/2016 12:00:Nu Wynn RN) Discharged To: Home (05/26/2016 12:00:Nu Wynn RN) Discharge Provider Name: Dr. Villareal (05/26/2016 12:00:Nu Wynn RN) Accompanied By: (05/26/2016 12:00:Nu Wynn RN) Discharge Method: Ambulatory (05/26/2016 12:00:Nu Wynn RN) Condition: Stable (05/26/2016 12:00:Nu Wynn RN) FOLLOW UP INFORMATION Follow Up With: [facility] (05/26/2016 12:00:Nu Wynn RN) Follow Up On: As Scheduled (05/26/2016 12:00:Nu Wynn RN) Follow Up Phone Number: [facility] - (05/26/2016 12:00:Nu Wynn RN) GENERAL INSTR-CALL PROVIDER IF: Contractions: Contractions or cramps become more frequent than 8 in one hour or 4 in 20 minutes; Regular painful contractions every 5 minutes or less for one hour. Time your contractions from the beginning of one to the beginning of the next (05/26/2016 12:00:Nu Wynn RN) Pressure: Pressure in your vagina or lower abdomen that may feel like the baby is pushing down (05/26/2016 12:00:Nu Wynn RN) Gush of Fluid/Blood: Gush of fluid or blood from your vagina (it is normal to have spotting after vaginal exam or intercourse) (05/26/2016 12:00:Nu Wynn RN) Vaginal Discharge: Change in the type or amount of vaginal discharge (05/26/2016 12:00:Nu Wynn RN) Decreased Movement: Your baby is not moving as much as usual- 4 movements in 1 hour after drinking and resting on side (05/26/2016 12:00:Nu Wynn RN)
== END 2016-05-26 12:00 | disposition home or self-care (01) ==
LOC: LC 10:08
PROVIDERS: ATTEND Specialist
PROC: 4A1HXCZ Monitoring of Products of Conception, Cardiac Rate, External Approach (ICD-10-PCS; principal; 2016-05-26)
DX: O47.03 False labor before 37 completed weeks of gestation, third trimester (principal); Z3A.33 33 weeks gestation of pregnancy
CPT/HCPCS: 59025; 80307; 81001

== ENCOUNTER 2016-06-13 03:22 | Outpatient (CLI) | payer MEDICAID ==
[2016-06-13 04:14] LABS: APPEARANCE,URINE SLIGHTLY-CLOUDY; BILIRUBIN,URINE NEGATIVE (NEGATIVE); GLUCOSE, URINE NEGATIVE (NEGATIVE); KETONES,URINE NEGATIVE (NEGATIVE); LEUKOCYTE ESTERASE,URINE MODERATE (NEGATIVE); NITRITE,URINE NEGATIVE (NEGATIVE); PROTEIN,URINE 100 mg/dL (NEGATIVE); URINE SPECIFIC GRAVITY 1.029; UROBILINOGEN,URINE NEGATIVE mg/dL (<2.0)
[2016-06-13] MEDS ORDERED: ONDANSETRON 4 MG TAB.RAPDIS PO ONE (04:20)
[2016-06-13] MEDS ORDERED: ONDANSETRON 4 MG TAB.RAPDIS ONE (04:23)
[2016-06-13 04:28] LABS: URINE BARBITURATES SCREEN NEGATIVE; URINE METHADONE SCREEN NEGATIVE; URINE OPIATES LOW NEGATIVE; URINE PHENCYCLIDINE SCREEN NEGATIVE
== END 2016-06-13 04:32 | disposition home or self-care (01) ==
LOC: LC 03:22
PROVIDERS: ATTEND Obstetrics & Gynecology
PROC: 4A1HXCZ Monitoring of Products of Conception, Cardiac Rate, External Approach (ICD-10-PCS; principal; 2016-06-13)
DX: O47.03 False labor before 37 completed weeks of gestation, third trimester (principal); Z3A.35 35 weeks gestation of pregnancy
CPT/HCPCS: 59025; 81001; 80307; S0119

== ENCOUNTER 2016-06-16 10:22 | Outpatient (CLI) | payer MEDICAID | END 2016-06-16 11:03 | disposition home or self-care (01) | LOC: LC 10:22 | PROVIDERS: ATTEND Obstetrics & Gynecology | DX: O24.913 Unspecified diabetes mellitus in pregnancy, third trimester (principal); Z3A.36 36 weeks gestation of pregnancy | CPT/HCPCS: 59025 ==

== ENCOUNTER 2016-06-19 09:49 | Outpatient (CLI) | payer MEDICAID ==
--- NOTE | 2016-06-19 10:02 | Non Stress Test Report ---
Non Stress Test Datetime Report Generated by CPN: 06/19/2016 10:02 DEMOGRAPHIC Test Number: 1 EGA NST: 36.0 EGA NST: 35.4 EGA NST: 33.0 INDICATION Indication for Study: Diabetes Mellitus; Ordered by Provider Indication for Study: Ordered by Provider Indication for Study: Ordered by Provider Indication for Study (NST) Other: LC VITAL SIGNS Temperature - NST: 98.9 URINE RESULTS Urine Protein, NST: Positive Urine Ketones - NST: Negative Urine Glucose - NST: Negative Urine Blood - NST: Negative MONITORING Monitor Explained: Monitor Explained; Test Explained; Patient Verbalized Understanding Monitor Explained: Monitor Explained; Test Explained; Patient Verbalized Understanding Monitor Explained: Monitor Explained; Test Explained; Patient Verbalized Understanding Time on Monitor: 06/16/2016 10:34 Time on Monitor: 06/13/2016 03:39 Time on Monitor: 05/26/2016 10:27 Time off Monitor: 06/16/2016 11:00 Time off Monitor: 06/13/2016 04:23 Time off Monitor: 05/26/2016 11:49 NST Duration: 26 NST Duration: 44 NST Duration: 82 NST INTERVENTIONS NST Interventions: PO Hydration; Reposition Patient NST Interventions: PO Hydration NST Interventions: PO Hydration Physician Notified NST: Rita Juares CNM Physician Notified NST: Jazzy Physician Notified NST: Dr. Villareal BABY A: [id number] BABY A Movement : Present Movement : Present Movement : Present Contraction Frequency : none Contraction Frequency : x2 Contraction Frequency : irregular FHR Baseline : 135 FHR Baseline : 150 FHR Baseline : 145 Accelerations : 15X15 Accelerations : 15X15 Accelerations : 15X15 Decelerations : None Decelerations : None Decelerations : None Variability : Moderate 6-25bpm Variability : Moderate 6-25bpm Variability : Moderate 6-25bpm NST Review: Meets Criteria for Reactive NST NST Review: Meets Criteria for Reactive NST NST Review: Meets Criteria for Reactive NST NST Review and Verified By : Bella Herrera RN NST Review and Verified By : K. Markie, RN NST Review and Verified By : Bella Issa RN NST Results: Reactive NST Results: Reactive NST Results: Reactive NST REPORT Report Trigger: Send Report Report Trigger: Send Report
--- NOTE | 2016-06-19 10:34 | Non Stress Test Report ---
Non Stress Test Datetime Report Generated by CPN: 06/19/2016 10:34 DEMOGRAPHIC EGA NST: 36.3 INDICATION Indication for Study: Ordered by Provider MONITORING Monitor Explained: Monitor Explained; Test Explained; Patient Verbalized Understanding Time on Monitor: 06/19/2016 10:04 Time off Monitor: 06/19/2016 10:32 NST Duration: 28 NST INTERVENTIONS NST Interventions: Reposition Patient Physician Notified NST: J. Schmidt, CNM BABY A Movement : Present Contraction Frequency : none FHR Baseline : 150 Accelerations : 15X15 Decelerations : None Variability : Moderate 6-25bpm NST Review: Meets Criteria for Reactive NST NST Review and Verified By : Rhina Mendieta RNC NST Results: Reactive NST REPORT Report Trigger: Send Report
== END 2016-06-19 10:37 | disposition home or self-care (01) ==
LOC: LC 09:49
PROVIDERS: ATTEND Specialist
PROC: 4A1HXCZ Monitoring of Products of Conception, Cardiac Rate, External Approach (ICD-10-PCS; principal; 2016-06-19)
DX: O24.913 Unspecified diabetes mellitus in pregnancy, third trimester (principal); O09.523 Supervision of elderly multigravida, third trimester; Z3A.36 36 weeks gestation of pregnancy
CPT/HCPCS: 59025

== ENCOUNTER 2016-06-23 10:18 | Outpatient (CLI) | payer MEDICAID ==
[2016-06-23 10:59] LABS: APPEARANCE,URINE SLIGHTLY-CLOUDY; BILIRUBIN,URINE NEGATIVE (NEGATIVE); GLUCOSE, URINE NEGATIVE (NEGATIVE); KETONES,URINE NEGATIVE (NEGATIVE); LEUKOCYTE ESTERASE,URINE LARGE (NEGATIVE); NITRITE,URINE NEGATIVE (NEGATIVE); PROTEIN,URINE 100 mg/dL (NEGATIVE); URINE SPECIFIC GRAVITY 1.026; UROBILINOGEN,URINE NEGATIVE mg/dL (<2.0)
[2016-06-23 11:34] LABS: URINE BARBITURATES SCREEN NEGATIVE; URINE METHADONE SCREEN NEGATIVE; URINE OPIATES LOW NEGATIVE; URINE PHENCYCLIDINE SCREEN NEGATIVE
[2016-06-23 11:47] LABS: ABSOLUTE EOSINOPHILS # (AUTO) 0.1 10^3/uL (0.0-0.6); ABSOLUTE LYMPHOCYTES (AUTO) 2.4 10^3/uL (0.5-4.7); ABSOLUTE MONOCYTES (AUTO) 0.7 10^3/uL (0.1-1.4); ABSOLUTE NEUT (AUTO) 3.3 10^3/uL (1.7-8.2); BASOPHILS % (AUTO) 0.2 % (0-2); EOSINOPHILS % (AUTO) 0.8 % (0-6); HEMATOCRIT 31.6 % (36.0-47.0); HEMOGLOBIN 10.7 g/dL (12.0-15.5); HGB HCT DIFFERENCE 0.5; LYMPHOCYTES % (AUTO) 36.6 % (13-45); MEAN CORPUSCULAR HEMOGLOBIN 30.7 pg (27.0-33.4); MEAN CORPUSCULAR HGB CONC 33.9 g/dL (32.0-36.0); MEAN CORPUSCULAR VOLUME 91 fl (80-97); MONOCYTES % (AUTO) 11.3 % (3-13); RED BLOOD COUNT 3.49 10^6/uL (3.72-5.28); RED CELL DISTRIBUTION WIDTH 13.1 % (11.5-14.0); SEGMENTED NEUTROPHILS % (AUTO) 51.1 % (42-78); WHITE BLOOD COUNT 6.5 10^3/uL (4.0-10.5)
[2016-06-23 12:11] LABS: ALANINE AMINOTRANSFERASE 33 U/L (9-52); ALBUMIN 3.3 g/dL (3.5-5.0); ALKALINE PHOSPHATASE 188 U/L (38-126); ANION GAP 9 (5-19); ASPARTATE AMINO TRANSFERASE 26 U/L (14-36); BILIRUBIN,DIRECT 0.3 mg/dL (0.0-0.4); BILIRUBIN,TOTAL 0.4 mg/dL (0.2-1.3); BLOOD UREA NITROGEN 16 mg/dL (7-20); CALCIUM 9.2 mg/dL (8.4-10.2); CARBON DIOXIDE 23 mmol/L (22-30); CHLORIDE 104 mmol/L (98-107); CREATININE RESULT 0.82 mg/dL (0.52-1.25); GLUCOSE 55 mg/dL (75-110); LDH 516 U/L (313-618); SODIUM 135.5 mmol/L (137-145); TOTAL PROTEIN 6.7 g/dL (6.3-8.2); URIC ACID 5.2 mg/dL (2.5-6.2)
[2016-06-23 12:23] LABS: URINE CREATININE 202.1 mg/dL (16-327); URINE PROTEIN 184.7 mg/dL (<12)
[2016-06-23 12:24] LABS: POTASSIUM 4.4 mmol/L (3.6-5.0)
--- NOTE | 2016-06-24 11:37 | Non Stress Test Report ---
Non Stress Test Datetime Report Generated by N: 06/24/2016 11:37 Indication for Study: Diabetes Mellitus; Ordered by Provider Monitor Explained: Monitor Explained; Test Explained; Patient Verbalized Understanding Time on Monitor: 06/23/2016 10:45 Time off Monitor: 06/23/2016 11:05 NST Interventions: PO Hydration Physician Notified NST: Ban Juares CNM Movement : Present Contraction Frequency : Irr FHR Baseline : 135 Accelerations : Prolonged Decelerations : None Variability : Moderate 6-25bpm NST Review: Meets Criteria for Reactive NST NST Results: Reactive
[2016-06-24 13:58] LABS: URINE PROTEIN 121.5 mg/dL (<12)
--- NOTE | 2016-06-24 17:53 | Non Stress Test Report ---
Non Stress Test Datetime Report Generated by CPN: 06/24/2016 17:53 DEMOGRAPHIC EGA NST: 37.0 INDICATION Indication for Study: Diabetes Mellitus; Ordered by Provider MONITORING Monitor Explained: Monitor Explained; Test Explained; Patient Verbalized Understanding Time on Monitor: 06/23/2016 10:45 Time off Monitor: 06/23/2016 11:05 NST Duration: 20 NST INTERVENTIONS NST Interventions: PO Hydration Physician Notified NST: H Mor CNM BABY A: [id number] BABY A Movement : Present Contraction Frequency : Irr FHR Baseline : 135 Accelerations : Prolonged Decelerations : None Variability : Moderate 6-25bpm NST Review: Meets Criteria for Reactive NST NST Results: Reactive NST REPORT Report Trigger: Send Report
== END 2016-06-23 13:40 | disposition home or self-care (01) ==
LOC: LC 10:18
PROVIDERS: ATTEND Student in an Organized Health Care Education/Training Program
PROC: 4A1HXCZ Monitoring of Products of Conception, Cardiac Rate, External Approach (ICD-10-PCS; principal; 2016-06-23)
DX: O24.419 Gestational diabetes mellitus in pregnancy, unspecified control (principal); O16.3 Unspecified maternal hypertension, third trimester; Z3A.37 37 weeks gestation of pregnancy
CPT/HCPCS: 36415; 80053; 80307; 81001; 82570; 83615; 84156; 84550; 85025

== ENCOUNTER 2017-08-03 19:40 | Emergency (ER) | payer SELFPAY ==
[2017-08-03] MEDS ORDERED: PREDNISONE 20 MG TABLET PO ONE (21:20)
[2017-08-03] MEDS ORDERED: IPRATROPIUM/ALBUTEROL 0.5-2.5 MG/3 ML AMPUL NEB ONE (21:20)
--- NOTE | 2017-08-03 21:58 | RADIOLOGY REPORT (SQ) ---
EXAM DESCRIPTION: CHEST SINGLE VIEW COMPLETED DATE/TIME: 08/03/2017 9:44 pm REASON FOR STUDY: difficulty breathing COMPARISON: None. EXAM PARAMETERS: NUMBER OF VIEWS: One view. TECHNIQUE: Single frontal radiographic view of the chest acquired. RADIATION DOSE: NA LIMITATIONS: None. FINDINGS: LUNGS AND PLEURA: No opacities, masses or pneumothorax. No pleural effusion. MEDIASTINUM AND HILAR STRUCTURES: No masses. Contour normal. HEART AND VASCULAR STRUCTURES: Cardiac silhouette is slightly enlarged. BONES: No acute findings. HARDWARE: None in the chest. OTHER: No other significant finding. IMPRESSION: Borderline cardiomegaly. No evidence of failure. TECHNICAL DOCUMENTATION: JOB ID: [id number] [employer]- All Rights Reserved Reading location - IP/workstation name: [email or web address]
[2017-08-03] MEDS: ALBUTEROL SULFATE 0.083% NEB 2.5 MG/3 ML AMPUL NEB SCH ×2 (22:20→22:57)
[2017-08-03] MEDS ORDERED: DEXAMETHASONE SOD PHOS INJ 10 MG/1 ML VIAL IM ONE (22:40)
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
[2017-08-03 22:56] VITALS: BP 125/84
== END 2017-08-03 23:13 | disposition home or self-care (01) ==
LOC: ER 19:40
DX: J45.21 Mild intermittent asthma with (acute) exacerbation (principal); I10 Essential (primary) hypertension
CPT/HCPCS: 94640 ×2; 99285; 96372; 71045; J7512; J1100; J7620

== ENCOUNTER 2018-03-15 01:18 | Emergency (ER) | payer SELFPAY ==
[2018-03-15 01:44] VITALS: BP 152/77
[2018-03-15] MEDS ORDERED: IPRATROPIUM/ALBUTEROL 0.5-2.5 MG/3 ML AMPUL NEB ONE ×3 (05:18)
[2018-03-15] MEDS ORDERED: PREDNISONE 20 MG TABLET PO ONE (05:18)
--- NOTE | 2018-03-15 05:20 | ER Document Report ---
ED Medical Screen (RME) - General Chief Complaint: Rib Pain Stated Complaint: RIB PAIN Time Seen by Provider: 03/15/18 05:14 Notes: 28-year-old female with a history of asthma, chief complaint of 4 days of worsening cough, wheezing, shortness of breath. States she thinks she has had a fever. Has not had influenza testing. Albuterol inhaler at home not working. TRAVEL OUTSIDE OF THE [place] IN LAST 30 DAYS: No - Related Data Allergies/Adverse Reactions: Potassium Clavulanate * [From Augmentin] Allergy (Mild, Verified 06/23/16 10:30) amoxicillin trihydrate [From Augmentin] Allergy (Verified 06/23/16 10:30) Past Medical History - Social History Chew tobacco use (# tins/day): No Frequency of alcohol use: Occasional Drug Abuse: None - Past Medical History Cardiac Medical History: Reports: Hx Hypertension Pulmonary Medical History: Reports: Hx Asthma Neurological Medical History: Reports: Hx Migraine Renal/ Medical History: Denies: Hx Peritoneal Dialysis Musculoskeltal Medical History: Reports Hx Arthritis Skin Medical History: Reports Hx Eczema Psychiatric Medical History: Reports: Hx Anxiety Past Surgical History: Reports: Hx Oral Surgery - wisdom teeth - Immunizations Immunizations up to date: No Hx Diphtheria, Pertussis, Tetanus Vaccination: No Physical Exam - Vital signs Vitals: Temp Pulse Resp BP Pulse Ox 97.6 F 82 16 152/77 H 97 03/15/18 01:42 03/15/18 01:42 03/15/18 01:42 03/15/18 01:42 03/15/18 01:42 - Respiratory Respiratory status: No respiratory distress Breath sounds: Decreased air movement, Wheezing Course - Vital Signs Vital signs: Temp Pulse Resp BP Pulse Ox 97.6 F 82 16 152/77 H 97 03/15/18 01:42 03/15/18 01:42 03/15/18 01:42 03/15/18 01:42 03/15/18 01:42
--- NOTE | 2018-03-15 06:45 | ER Document Report ---
ED Respiratory Problem - General Chief Complaint: Rib Pain Stated Complaint: RIB PAIN Time Seen by Provider: 03/15/18 05:14 Notes: 28-year-old female with a history of asthma, chief complaint of 4 days of worsening cough, wheezing, shortness of breath. States she thinks she has had a fever. Has not had influenza testing. Albuterol inhaler at home not working. The patient stated she has had a cold for the last 2 weeks. Her son was also sick with the same. She states her albuterol has not been helping at home. She also complains that she found a lump in her left breast. Has not followed up with any primary care or women's health. Complains of scratchy throat some nasal congestion. Wheezing. Nothing really makes it better or worse TRAVEL OUTSIDE OF THE [place] IN LAST 30 DAYS: No - Related Data Allergies/Adverse Reactions: Potassium Clavulanate * [From Augmentin] Allergy (Mild, Verified 06/23/16 10:30) amoxicillin trihydrate [From Augmentin] Allergy (Verified 06/23/16 10:30) Past Medical History - Social History Smoking Status: Never Smoker Chew tobacco use (# tins/day): No Frequency of alcohol use: Occasional Drug Abuse: None Family History: Arthritis, CAD, DM, Hyperlipidemia, Hypertension, Malignancy Patient has suicidal ideation: No Patient has homicidal ideation: No - Past Medical History Cardiac Medical History: Reports: Hx Hypertension Pulmonary Medical History: Reports: Hx Asthma Neurological Medical History: Reports: Hx Migraine Renal/ Medical History: Denies: Hx Peritoneal Dialysis Musculoskeletal Medical History: Reports Hx Arthritis Skin Medical History: Reports Hx Eczema Psychiatric Medical History: Reports: Hx Anxiety Past Surgical History: Reports: Hx Oral Surgery - wisdom teeth - Immunizations Immunizations up to date: No Hx Diphtheria, Pertussis, Tetanus Vaccination: No Review of Systems - Review of Systems Constitutional: Chills, Fever EENT: Nose congestion, Throat pain. denies: Difficulty swallowing Cardiovascular: denies: Chest pain, Orthopnea Respiratory: Cough, Wheezing Female Genitourinary: Other - Breast lump left -: Yes All other systems reviewed and negative Physical Exam - Vital signs Vitals: Temp Pulse Resp BP Pulse Ox 97.6 F 82 16 152/77 H 97 03/15/18 01:42 03/15/18 01:42 03/15/18 01:42 03/15/18 01:42 03/15/18 01:42 - Notes Notes: GENERAL_APPEARANCE: well_nourished, alert, cooperative VITALS: reviewed, see vital signs table. HEAD: no_swelling\tenderness on the head. EYES: PERRL, EOMI, conjunctiva_clear. NOSE: Clear_nasal_discharge. Mild turbinate inflammation MOUTH: (-)decreased moisture. No drooling or stridor THROAT: Throat_inflammation, no_airway_obstruction. no_lymphadenopathy NECK: supple, no_neck_tenderness, (-)thyromegaly. BACK: no_back_tenderness. CHEST_WALL: no_chest_tenderness. With nurse present, small pea-sized abnormality detected at the 6 o'clock position on the breast near the chest wall, no redness no heat no fluctuance. Rubbery in character LUNGS: Scant_wheezing, no_rales, no_rhonchi, (-)accessory muscle use, good air exchange bilateral. HEART: normal_rate, normal_rhythm, normal_S1, normal_S2, (-)S3, (-)S4, no_murmur, no_rub. ABDOMEN: normal_BS, soft, no_abd_tenderness, (-)guarding, (-)rebound, no_organomegaly, no_abd_masses. EXTREMITIES: good pulses in all_extremities, no_swelling\tenderness in the extremities, no_edema. SKIN: warm, dry, good_color, no_rash. MENTAL_STATUS: speech_clear, oriented_X_3, normal_affect, responds_appropriately to questions. Course - Re-evaluation Re-evalutation: 03/15/18 06:44 28-year-old female comes in with a viral URI and a mild asthma exacerbation. Patient was given aerosol treatments here a dose of prednisone. With a chest x- ray to assess for pneumonia. Also the patient has a very small pea-sized lump in the 6 o'clock position of the left breast near the chest wall. There is no redness no heat no signs of an infectious process. This may be fibrocystic change. She does not have a primary care but I recommended she follow-up with the local health department women's health. We will likely get her a outpatient mammogram. Chest x-ray negative for pneumonia flu negative Patient has improved here with aerosol treatments. We will discharge her home with medications. 03/15/18 08:29 - Vital Signs Vital signs: Temp Pulse Resp BP Pulse Ox 97.6 F 82 16 152/77 H 97 03/15/18 01:42 03/15/18 01:42 03/15/18 01:42 03/15/18 01:42 03/15/18 01:42 - Diagnostic Test Radiology reviewed: Reports reviewed Discharge - Discharge Clinical Impression: Bronchitis Condition: Good Disposition: HOME, SELF-CARE Instructions: Bronchitis With Bronchospasm (Wheezing) ([facility]) Additional Instructions: The small lump in your breast will need to be investigated with a mammogram. You may go to the health department or women's health center and they can set you up with a mammogram. Prescriptions: Benzonatate [Tessalon Perles 100 mg Capsule] 100 mg PO Q8HP PRN #40 capsule PRN Reason: Cough Albuterol Sulfate [Proair HFA Inhalation Aerosol 8.5 gm MDI] 2 puff IH Q4H PRN #1 mdi PRN Reason: Azithromycin [Zithromax 250 mg Tablet] 250 mg PO ASDIR PRN #6 tablet PRN Reason: Prednisone [Deltasone 10 mg Tablet] 10 mg PO ASDIR PRN #21 tablet PRN Reason:
--- NOTE | 2018-03-15 07:15 | RADIOLOGY REPORT (SQ) ---
EXAM DESCRIPTION: XR CHEST 2 VIEWS COMPLETED DATE/TME: 03/15/2018 05:19 CLINICAL HISTORY: 28 years Female, 4 days of cough, fevers, shortness of breath COMPARISON: None. NUMBER OF VIEWS/TECHNIQUE: 2, Frontal, Lateral FINDINGS: Increased lung volume, clear parenchyma, normal cardiac silhouette, and scoliotic curvature. IMPRESSION: No acute cardiopulmonary findings.
[2018-03-15 08:01] LABS: A TYPE INFLUENZA AG NEGATIVE (NEGATIVE); B INFLUENZA AG NEGATIVE (NEGATIVE)
== END 2018-03-15 08:36 | disposition home or self-care (01) ==
LOC: ER 01:18
DX: J45.909 Unspecified asthma, uncomplicated (principal); N63.24 Unspecified lump in the left breast, lower inner quadrant; R07.81 Pleurodynia; R05 Cough; R06.02 Shortness of breath; R09.81 Nasal congestion
CPT/HCPCS: 94640; 99285; 87804; 71046; J7512; J7620

== ENCOUNTER 2018-05-04 10:35 | Emergency (ER) | payer SELFPAY ==
[2018-05-04] MEDS ORDERED: LIDOCAINE 1%/EPINEPHRINE INJ 20 ML VIAL INJ ONE (11:29)
--- NOTE | 2018-05-04 11:29 | ER Document Report ---
ED General - General Chief Complaint: Abscess Stated Complaint: POSSIBLE ABSCESS Time Seen by Provider: 05/04/18 10:56 Primary Care Provider: [facility] [Provider Group] - Follow up in 3-5 days TRAVEL OUTSIDE OF THE [place] IN LAST 30 DAYS: No - HPI Notes: Patient is a 28-year-old female that presents to the emergency department for chief complaint of abscess. Patient reports suprapubic abscess for the last 4 weeks. She states yesterday after her son accidentally ran into her she had spontaneous drainage. She reports copious amounts of purulent discharge. She states today it does appear smaller but is increasing in pain. She denies systemic symptoms including fevers. She states she gets intermittent abscesses in her pubic region usually correlating with her menstrual cycle but they have never lasted this long. She has never required incision and drainage of an abscess in the past. Past Medical History: Hypertension, diabetes Past Surgical History: Negative Social History: Denies drugs and tobacco, occasional alcohol Family History: Reviewed and noncontributory for presenting illness Allergies: Reviewed, see documented allergy list. REVIEW OF SYSTEMS: CONSTITUTIONAL : No fever No chills No diaphoresis No recent illness EENT: No vision changes No congestion No sore throat CARDIOVASCULAR: No chest pain No palpitations RESPIRATORY: No shortness of breath No cough No difficulty breathing GASTROINTESTINAL: No abdominal pain No nausea No vomiting No diarrhea GENITOURINARY: No dysuria No hematuria No difficulty urinating MUSCULOSKELETAL: No back pain No leg pain No arm pain SKIN: No rashes Abscess LYMPHATIC: No swollen, enlarged glands. NEUROLOGICAL: No lightheadedness No headache No weakness No paresthesias PSYCHIATRIC: No anxiety No depression PHYSICAL EXAMINATION: Vital signs reviewed, nursing noted reviewed. GENERAL: Well-appearing, well-nourished and in no acute distress. HEAD: Atraumatic, normocephalic. EYES: Eyes appear normal, extraocular movements intact, sclera anicteric, conjunctiva are normal. ENT: nares patent, oropharynx clear without exudates. Moist mucous membranes. NECK: Normal range of motion, supple without lymphadenopathy LUNGS: Breath sounds clear to auscultation bilaterally and equal. No wheezes rales or rhonchi. HEART: Regular rate and rhythm without murmurs ABDOMEN: Soft, nontender, normoactive bowel sounds. No rebound, guarding, or rigidity. No masses appreciated. EXTREMITIES: Nontender, good range of motion, no pitting or edema. NEUROLOGICAL: No focal neurological deficits. Moves all extremities spontaneously Motor and sensory grossly intact on exam. PSYCH: Normal mood, normal affect. SKIN: Warm, Dry, normal turgor. 1.0 cm x 1.0 cm fluctuant abscess just cephalad to pubic symphysis with no spontaneous drainage, tender to palpation, minimal surrounding erythema - Related Data Allergies/Adverse Reactions: Potassium Clavulanate * [From Augmentin] Allergy (Mild, Verified 05/04/18 10:38) amoxicillin trihydrate [From Augmentin] Allergy (Verified 05/04/18 10:38) Past Medical History - Social History Smoking Status: Never Smoker Chew tobacco use (# tins/day): No Frequency of alcohol use: Social Drug Abuse: None Family History: Arthritis, CAD, DM, Hyperlipidemia, Hypertension, Malignancy Patient has suicidal ideation: No Patient has homicidal ideation: No - Past Medical History Cardiac Medical History: Reports: Hx Hypertension Pulmonary Medical History: Reports: Hx Asthma Neurological Medical History: Reports: Hx Migraine Renal/ Medical History: Denies: Hx Peritoneal Dialysis Musculoskeletal Medical History: Reports Hx Arthritis Skin Medical History: Reports Hx Eczema Psychiatric Medical History: Reports: Hx Anxiety Past Surgical History: Reports: Hx Oral Surgery - wisdom teeth - Immunizations Immunizations up to date: No Hx Diphtheria, Pertussis, Tetanus Vaccination: No Physical Exam - Vital signs Vitals: Temp Pulse Resp BP Pulse Ox 98.2 F 77 16 121/82 98 05/04/18 10:43 05/04/18 10:43 05/04/18 10:43 05/04/18 10:43 05/04/18 10:43 Course - Re-evaluation Re-evalutation: 05/04/18 11:31 Vitals reviewed. Nursing notes reviewed. Patient has a fluctuant abscess on her prepubic region which will be incised and drained. She is a diabetic and has some mild surrounding erythema, she will be placed on antibiotics. Patient counseled on wound management and follow-up instructions. She is stable at discharge. - Vital Signs Vital signs: Temp Pulse Resp BP Pulse Ox 98.2 F 77 16 121/82 98 05/04/18 10:43 05/04/18 10:43 05/04/18 10:43 05/04/18 10:43 05/04/18 10:43 Procedures - Incision and Drainage Groin Time completed: 11:32 Type: Simple Anesthetic type: 1% Lidocaine w/epi mL's of anesthetic: 2 Blade size: 11 I&D procedure: Betadine prep applied, Iodoform packing placed Incision Method: Incision made by scalpel Amount/type of drainage: minimal Discharge - Discharge Clinical Impression: Abscess Condition: Stable Disposition: HOME, SELF-CARE Instructions: Abscess (OM), Trimethoprim-Sulfa (OM) Additional Instructions: Please return to the emergency department if you have any worsening, or concern of your symptoms. Please return to the emergency department if you develop chest pain, difficulty breathing, severe abdominal pain, or ongoing vomiting. Please follow-up with your primary care physician in 2-3 days and any other recommended physicians. If prescribed, take all medications as directed. If you have any questions or concerns do not hesitate to return the emergency department for evaluation. Prescriptions: Sulfamethoxazole/Trimethoprim [Bactrim Ds Tablet] 1 each PO BID #14 tablet Referrals: [facility] [Provider Group] - Follow up in 3-5 days
[2018-05-04 12:25] VITALS: BP 132/85
== END 2018-05-04 12:24 | disposition home or self-care (01) ==
LOC: ER 10:35
DX: L02.214 Cutaneous abscess of groin (principal); E11.9 Type 2 diabetes mellitus without complications; I10 Essential (primary) hypertension; J45.909 Unspecified asthma, uncomplicated; Z88.0 Allergy status to penicillin
CPT/HCPCS: 99283; 10060; A6266; J3490

== ENCOUNTER 2018-10-07 10:38 | Emergency (ER) | payer OTHER ==
[2018-10-07] MEDS ORDERED: ONDANSETRON 4 MG TAB.RAPDIS PO ONE (11:00)
--- NOTE | 2018-10-07 11:02 | ER Document Report ---
ED Medical Screen (RME) - General Chief Complaint: Lower Abdominal Pain Stated Complaint: LOW RIGHT SIDE PAIN Time Seen by Provider: 10/07/18 10:50 Mode of Arrival: Ambulatory Information source: Patient Notes: 28-year-old female presented to ED for complaint of lower abdominal pain. She states on Wednesday she had periumbilical pain that moved to the right lower quadrant. She states it is been waxing and waning sharp and dull since Wednesday. She states she has had nausea vomiting since Wednesday. She states she had diarrhea on Wednesday and then she developed constipation and has not had any s tools since. She states she is trying to drink water but she is nauseated. She states she is only vomited one time today. She states she has had low back pain since Wednesday and burning with urination. She states her menstrual cycle started yesterday. She denies smoking states she does drink monthly and uses marijuana. Patient is alert oriented respirations regular and unlabored speaking in full sentences walks with a even steady gait. I have greeted and performed a rapid initial assessment of this patient. A comprehensive ED assessment and evaluation of the patient, analysis of test results and completion of medical decision making process will be conducted by an additional ED providers. TRAVEL OUTSIDE OF THE [place] IN LAST 30 DAYS: No - Related Data Allergies/Adverse Reactions: Potassium Clavulanate * [From Augmentin] Allergy (Mild, Verified 10/07/18 10:41) amoxicillin trihydrate [From Augmentin] Allergy (Verified 10/07/18 10:41) Past Medical History - Social History Chew tobacco use (# tins/day): No Frequency of alcohol use: Occasional Drug Abuse: Marijuana - Past Medical History Cardiac Medical History: Reports: Hx Hypertension Pulmonary Medical History: Reports: Hx Asthma Neurological Medical History: Reports: Hx Migraine Renal/ Medical History: Denies: Hx Peritoneal Dialysis Musculoskeltal Medical History: Reports Hx Arthritis Skin Medical History: Reports Hx Eczema Psychiatric Medical History: Reports: Hx Anxiety Past Surgical History: Reports: Hx Oral Surgery - wisdom teeth - Immunizations Immunizations up to date: No Hx Diphtheria, Pertussis, Tetanus Vaccination: No Physical Exam - Vital signs Vitals: Temp Pulse Resp BP Pulse Ox 98.4 F 85 16 139/98 H 99 10/07/18 10:45 10/07/18 10:45 10/07/18 10:45 10/07/18 10:45 10/07/18 10:45 Course - Vital Signs Vital signs: Temp Pulse Resp BP Pulse Ox 98.4 F 85 16 139/98 H 99 10/07/18 10:45 10/07/18 10:45 10/07/18 10:45 10/07/18 10:45 10/07/18 10:45
[2018-10-07 11:27] LABS: ABSOLUTE EOSINOPHILS # (AUTO) 0.1 10^3/uL (0.0-0.6); ABSOLUTE LYMPHOCYTES (AUTO) 1.7 10^3/uL (0.5-4.7); ABSOLUTE MONOCYTES (AUTO) 0.4 10^3/uL (0.1-1.4); ABSOLUTE NEUT (AUTO) 1.9 10^3/uL (1.7-8.2); BASOPHILS % (AUTO) 0.7 % (0-2); EOSINOPHILS % (AUTO) 1.8 % (0-6); HEMOGLOBIN 11.6 g/dL (12.0-15.5); LYMPHOCYTES % (AUTO) 41.9 % (13-45); MEAN CORPUSCULAR HEMOGLOBIN 27.7 pg (27.0-33.4); MEAN CORPUSCULAR HGB CONC 32.2 g/dL (32.0-36.0); MEAN CORPUSCULAR VOLUME 86 fl (80-97); MONOCYTES % (AUTO) 9.5 % (3-13); PLATELET COUNT 314 10^3/uL (150-450); RED BLOOD COUNT 4.18 10^6/uL (3.72-5.28); RED CELL DISTRIBUTION WIDTH 15.4 % (11.5-14.0); SEGMENTED NEUTROPHILS % (AUTO) 46.1 % (42-78); TOTAL CELLS COUNTED % (AUTO) 100 %; WHITE BLOOD COUNT 4.1 10^3/uL (4.0-10.5)
[2018-10-07 11:33] LABS: APPEARANCE,URINE CLEAR; BILIRUBIN,URINE NEGATIVE (NEGATIVE); COLOR,URINE YELLOW; GLUCOSE, URINE NEGATIVE (NEGATIVE); KETONES,URINE 20 mg/dL (NEGATIVE); LEUKOCYTE ESTERASE,URINE NEGATIVE (NEGATIVE); NITRITE,URINE NEGATIVE (NEGATIVE); PROTEIN,URINE 30 mg/dL (NEGATIVE); URINE SPECIFIC GRAVITY 1.029; UROBILINOGEN,URINE NEGATIVE mg/dL (<2.0)
[2018-10-07 11:44] LABS: ALBUMIN 4.4 g/dL (3.5-5.0); ALKALINE PHOSPHATASE 56 U/L (38-126); ANION GAP 10 (5-19); ASPARTATE AMINO TRANSFERASE 20 U/L (14-36); BILIRUBIN,DIRECT 0.3 mg/dL (0.0-0.4); BILIRUBIN,TOTAL 0.4 mg/dL (0.2-1.3); BLOOD UREA NITROGEN 12 mg/dL (7-20); CALCIUM 9.5 mg/dL (8.4-10.2); CARBON DIOXIDE 25 mmol/L (22-30); CHLORIDE 105 mmol/L (98-107); GLUCOSE 98 mg/dL (75-110); POTASSIUM 3.8 mmol/L (3.6-5.0); TOTAL PROTEIN 8.1 g/dL (6.3-8.2)
--- NOTE | 2018-10-07 12:24 | RADIOLOGY REPORT (SQ) ---
EXAM DESCRIPTION: U/S ABDOMEN LTD W/DOPPLER COMPLETED DATE/TIME: 10/07/2018 12:06 pm REASON FOR STUDY: Right pelvic/abdominal pain/look for appendix COMPARISON: None. TECHNIQUE: Dynamic and static grayscale images acquired of the abdomen and recorded on PACS. Masono eber selected color Doppler and spectral images recorded. LIMITATIONS: None. FINDINGS: PANCREAS: No masses. Visualized pancreatic duct normal caliber. LIVER: Normal size Echo texture normal. No focal masses. LIVER VASCULATURE: Normal directional flow of the main portal vein and hepatic veins. GALLBLADDER: No stones. Normal wall thickness. No pericholecystic fluid. ULTRASOUND-DETECTED AWAD'S SIGN: Negative. INTRAHEPATIC DUCTS AND COMMON DUCT: CBD and intrahepatic ducts normal caliber. No filling defects. INFERIOR VENA CAVA: Normal flow. AORTA: No aneurysm. RIGHT KIDNEY: Normal size. Normal echogenicity. No solid or suspicious masses. No hydronephros is. No calcifications. PERITONEAL AND RIGHT PLEURAL SPACE: No ascites or effusions. OTHER: The right lower quadrant was imaged. Appendix is not identified. Normal peristalsis is noted . IMPRESSION: NORMAL RIGHT UPPER QUADRANT ULTRASOUND VISUALIZED. TECHNICAL DOCUMENTATION: JOB ID: [id number] [email or web address]- All Rights Reserved Reading location - IP/workstation name: [email or web address]
--- NOTE | 2018-10-07 12:25 | RADIOLOGY REPORT (SQ) ---
EXAM DESCRIPTION: U/S NON-OB PELVIS TV W/O DOP COMPLETED DATE/TIME: 10/07/2018 12:06 pm REASON FOR STUDY: Right pelvic/lower abdominal pain COMPARISON: None. TECHNIQUE: Dynamic and static grayscale images acquired of the pelvis via transvaginal approach and recorded on PACS. Additional selected color Doppler and spectral images recorded. LIMITATIONS: None. FINDINGS: UTERUS: Contour normal. No mass. ENDOMETRIAL STRIPE: No focal or generalized thickening. No masses. CERVIX: No nabothian cysts. RIGHT OVARY AND DOPPLER: Normal size. No worrisome masses. Normal arterial vascular flow without evid ence for torsion. LEFT OVARY AND DOPPLER: Normal size. No worrisome masses. Normal arterial vascular flow without evide nce for torsion. FREE FLUID: None noted. OTHER: No other significant finding. MEASUREMENTS: UTERUS: 8.3 x 3.2 x 4.5 cm. ENDOMETRIAL STRIPE: 7.6 mm. RIGHT OVARY: 3.0 x 2.2 x 2.3 cm. LEFT OVARY: 2.5 x 1.5 x 2.3 cm. IMPRESSION: NORMAL TRANSVAGINAL PELVIC ULTRASOUND. TECHNICAL DOCUMENTATION: JOB ID: [id number] [email or web address]- All Rights Reserved Rev-07/02 Reading location - IP/workstation name: [email or web address]
--- NOTE | 2018-10-07 13:17 | ER Document Report ---
ED GI/ - General Chief Complaint: Lower Abdominal Pain Stated Complaint: LOW RIGHT SIDE PAIN Time Seen by Provider: 10/07/18 10:50 Primary Care Provider: JO ANN JUAREZ FNP-C [Primary Care Provider] - Follow up as needed Mode of Arrival: Ambulatory Information source: Patient Notes: HPI: 28-year-old female that presents today with the onset of what she states s ome right lower quadrant "dull" intermittent abdominal discomfort without radiation. She states she has vomited 1 time daily for the last 3 days. Nonbloody diarrhea Wednesday. She does state a low-grade fever about 2 days ago. She states some "stinging" with urination but denies any vaginal discharge. No history of ovarian cysts or kidney stones. Denies any other aggravating or relieving factors. ROS: See HPI All other review of systems reviewed and otherwise negative Reviewed vital signs and nursing note as charted by RN. PHYSICAL EXAM: CONSTITUTIONAL: Alert and oriented and responds appropriately to questions. Well-appearing; well-nourished HEAD: Normocephalic; atraumatic EYES: Sclerae non-icteric CARD: Regular rate and rhythm; no murmurs; symmetric distal pulses RESP: Normal chest excursion without splinting or tachypnea; breath sounds clear and equal bilaterally ABD/GI: Normal bowel sounds; non-distended; soft, mild tenderness to palpation of the right lower quadrant with no palpable masses, rebound or guarding BACK: The back appears normal and is non-tender to palpation EXT: Normal ROM in all joints; non-tender to palpation; no edema SKIN: No acute lesions noted NEURO: CN 2-12 intact; 5/5 bilateral upper and lower extremity strength with sensation intact to light touch PSYCH: The patient's mood and manner are appropriate. Grooming and personal hygiene are appropriate. TRAVEL OUTSIDE OF THE [place] IN LAST 30 DAYS: No - Related Data Allergies/Adverse Reactions: Potassium Clavulanate * [From Augmentin] Allergy (Mild, Verified 10/07/18 10:41) amoxicillin trihydrate [From Augmentin] Allergy (Verified 10/07/18 10:41) Past Medical History - General Information source: Patient - Social History Smoking Status: Never Smoker Chew tobacco use (# tins/day): No Frequency of alcohol use: Occasional Drug Abuse: Marijuana Family History: Arthritis, CAD, DM, Hyperlipidemia, Hypertension, Malignancy Patient has suicidal ideation: No Patient has homicidal ideation: No - Past Medical History Cardiac Medical History: Reports: Hx Hypertension Pulmonary Medical History: Reports: Hx Asthma Neurological Medical History: Reports: Hx Migraine Renal/ Medical History: Denies: Hx Peritoneal Dialysis Musculoskeletal Medical History: Reports Hx Arthritis Skin Medical History: Reports Hx Eczema Psychiatric Medical History: Reports: Hx Anxiety Past Surgical History: Reports: Hx Oral Surgery - wisdom teeth - Immunizations Immunizations up to date: No Hx Diphtheria, Pertussis, Tetanus Vaccination: No Physical Exam - Vital signs Vitals: Temp Pulse Resp BP Pulse Ox 98.4 F 85 16 139/98 H 99 10/07/18 10:45 10/07/18 10:45 10/07/18 10:45 10/07/18 10:45 10/07/18 10:45 Course - Re-evaluation Re-evalutation: Given the above history and physical, initial laboratory values and imaging were ordered in triage. This included a right upper quadrant ultrasound of the abdomen. 10/07/18 13:16 Ultrasound of the abdomen and pelvis showed no acute abnormalities with a normal gallbladder and no obvious ovarian paronychial masses or cysts. Urine analysis and labs otherwise unremarkable. I will proceed with a CT scan of the abdomen and pelvis as well as a pelvic examination and reassess. I would like to assess the appendix/right lower quadrant region. 10/07/18 16:18 Labs and imaging as recorded. Normal CT scan of the abdomen and pelvis. Pelvic examination showed no obvious external lesions, cervical motion tenderness, adnexal masses or tenderness. Pelvic labs thus far as recorded are unremarkabl e. Patient's pain is improved. Vital signs are stable. Patient will be discharged home with strict return precautions and follow-up with the BUSINESS SOLUTION ANALYST. - Vital Signs Vital signs: Temp Pulse Resp BP Pulse Ox 98.3 F 75 16 98/72 L 100 10/07/18 15:16 10/07/18 15:16 10/07/18 15:16 10/07/18 15:16 10/07/18 15:16 - Laboratory Result Diagrams: 10/07/18 11:12 10/07/18 11:12 Laboratory results interpreted by me: 10/07/18 10/07/18 11:12 11:12 Hgb 11.6 L RDW 15.4 H Urine Protein 30 H Urine Ketones 20 H Urine Blood SMALL H Discharge - Discharge Clinical Impression: Right lower quadrant pain Condition: Good Disposition: HOME, SELF-CARE Additional Instructions: Come back immediately for any increased pain, change in location or quality of pain, fevers or vomiting, or any other acute problems. Please follow-up with the BUSINESS SOLUTION ANALYST/primary care physician as discussed. Referrals: JO ANN JUAREZ, SERENITY-C [Primary Care Provider] - Follow up as needed
--- NOTE | 2018-10-07 14:51 | RADIOLOGY REPORT (SQ) ---
EXAM DESCRIPTION: CT ABD/PELVIS WITH IV ONLY COMPLETED DATE/TIME: 10/07/2018 2:36 pm REASON FOR STUDY: 34; RLQ pain COMPARISON: None. TECHNIQUE: CT scan of the abdomen and pelvis performed using helical scanning technique with dynamic intravenous contrast injection. No oral contrast. Images reviewed with lung, soft tissue, and bone w indows. Reconstructed coronal and sagittal MPR images reviewed. Delayed images for evaluation of the urinary system also acquired. All images stored on PACS. All CT scanners at this facility use dose modulation, iterative reconstruction, and/or weight based d osing when appropriate to reduce radiation dose to as low as reasonably achievable (ALARA). [facility]: Dose Right [facility]: CareDose [facility]: Dose Right [facility]: Teradose 4D [facility]: Pose CONTRAST TYPE AND DOSE: contrast/concentration: Isovue 350.00 mg/ml; Total Contrast Delivered: 96.0 ml; Total Saline Delivered: 33.5 ml RENAL FUNCTION: GFR > 60. RADIATION DOSE: CT Rad equipment meets quality standard of care and radiation dose reduction techniq ues were employed. CTDIvol: 9.3 - 10.6 mGy. DLP: 954 mGy-cm.. LIMITATIONS: None. FINDINGS: LOWER CHEST: No significant findings. LIVER: Normal size. No enhancing masses. No dilated ducts. SPLEEN: Normal size. No focal lesions. PANCREAS: No masses identified. No significant calcifications. No adjacent inflammation or peripancre atic fluid collections. Pancreatic duct not dilated. GALLBLADDER: No calcified stones. No inflammatory changes to suggest cholecystitis. ADRENAL GLANDS: No significant masses. RIGHT KIDNEY AND URETER: No cysts identified. No solid masses identified. No calcified stones. No hyd ronephrosis or hydroureter. LEFT KIDNEY AND URETER: No cysts identified. No solid masses identified. No calcified stones. No hydr onephrosis or hydroureter. AORTA AND VESSELS: No aneurysm. No dissection. Renal arteries, SMA, celiac without significant stenos is. RETROPERITONEUM: No bulky retroperitoneal adenopathy. BOWEL AND PERITONEAL CAVITY: No obstruction or inflammatory changes. No free fluid. APPENDIX: Normal. PELVIS: No mass. No free fluid. Unremarkable bladder. ABDOMINAL WALL: No masses. No hernias. BONES: No acute findings. OTHER: No other significant finding. IMPRESSION: NO ACUTE FINDINGS IN THE ABDOMEN OR PELVIS ON CT SCAN WITH IV CONTRAST. TECHNICAL DOCUMENTATION: JOB ID: [id number] [place]-72 Quality ID # [id number]: Final reports with documentation of one or more dose reduction techniques (e.g., Au tomated exposure control, adjustment of the mA and/or kV according to patient size, use of iterative reconstruction technique) 2010 [employer]- All Rights Reserved Reading location - IP/workstation name: [email or web address]
[2018-10-07 15:54] LABS: BACTERIA (WET MOUNT) 3+ BACTERIA SEEN; RBCS (WET MOUNT) 4+ RBCS SEEN; T.VAGINALIS (WET MOUNT) NO TRICHOMONAS SEEN; WBCS (WET MOUNT) 1+ WBCS SEEN; YEAST (WET MOUNT) NO YEAST SEEN
[2018-10-07 16:56] VITALS: BP 110/74
[2018-10-07 17:20] LABS: CHLAM PCR NOT DETECTED (NOT DETECT)
== END 2018-10-07 16:54 | disposition home or self-care (01) ==
LOC: ER 10:38
DX: R10.31 Right lower quadrant pain (principal); R10.30 Lower abdominal pain, unspecified; R10.33 Periumbilical pain; R11.2 Nausea with vomiting, unspecified; R19.7 Diarrhea, unspecified; M54.5 Low back pain; R30.9 Painful micturition, unspecified; F12.90 Cannabis use, unspecified, uncomplicated; I10 Essential (primary) hypertension; J45.909 Unspecified asthma, uncomplicated
CPT/HCPCS: 99284; 36415; 87210; 83690; 84703; 85025; 80053; 81001; 87491; 87591; 76705; 76830; 93976; 74177; S0119

== ENCOUNTER 2018-12-21 04:58 | Emergency (ER) | payer OTHER ==
[2018-12-21 05:06] VITALS: BP 147/97
[2018-12-21] MEDS ORDERED: IPRATROPIUM/ALBUTEROL 0.5-2.5 MG/3 ML AMPUL NEB ONE (06:45)
[2018-12-21 06:53] LABS: ABSOLUTE LYMPHOCYTES (AUTO) 1.3 10^3/uL (0.5-4.7); ABSOLUTE MONOCYTES (AUTO) 0.5 10^3/uL (0.1-1.4); ABSOLUTE NEUT (AUTO) 2.1 10^3/uL (1.7-8.2); BASOPHILS % (AUTO) 0.5 % (0-2); EOSINOPHILS % (AUTO) 1.2 % (0-6); HEMOGLOBIN 11.6 g/dL (12.0-15.5); MEAN CORPUSCULAR HEMOGLOBIN 28.2 pg (27.0-33.4); MEAN CORPUSCULAR HGB CONC 32.2 g/dL (32.0-36.0); MEAN CORPUSCULAR VOLUME 88 fl (80-97); MONOCYTES % (AUTO) 12.9 % (3-13); PLATELET COUNT 363 10^3/uL (150-450); RED CELL DISTRIBUTION WIDTH 15.7 % (11.5-14.0); SEGMENTED NEUTROPHILS % (AUTO) 52.4 % (42-78); TOTAL CELLS COUNTED % (AUTO) 100 %
[2018-12-21] MEDS ORDERED: ALBUTEROL SULFATE 0.083% NEB 2.5 MG/3 ML AMPUL NEB PRN (07:31)
[2018-12-21] MEDS ORDERED: NORMAL SALINE 500 ML IV ONE (07:32)
[2018-12-21] MEDS ORDERED: METHYLPREDNISOLONE INJ 125 MG/2 ML SDV IV ONE (07:39)
[2018-12-21] MEDS: MAGNESIUM SULFATE/D5W 1 GM/100 ML RTUPB IV SCH ×2 (08:00→08:35)
--- NOTE | 2018-12-21 10:01 | RADIOLOGY REPORT (SQ) ---
EXAM DESCRIPTION: CHEST 2 VIEWS COMPLETED DATE/TIME: 12/21/2018 5:17 am REASON FOR STUDY: cough/wheeze x 2 weeks COMPARISON: 03/15/2018 EXAM PARAMETERS: NUMBER OF VIEWS: two views TECHNIQUE: Digital Frontal and Lateral radiographic views of the chest acquired. RADIATION DOSE: NA LIMITATIONS: none FINDINGS: LUNGS AND PLEURA: No opacities, masses or pneumothorax. No pleural effusion. MEDIASTINUM AND HILAR STRUCTURES: No masses or contour abnormalities. HEART AND VASCULAR STRUCTURES: Heart normal size. No evidence for failure. BONES: Stable in appearance. There is or coal lumbar scoliosis with concavity toward the right. HARDWARE: None in the chest. OTHER: No other significant finding. IMPRESSION: NO ACUTE RADIOGRAPHIC FINDING IN THE CHEST. TECHNICAL DOCUMENTATION: JOB ID: [id number] [email or web address]- All Rights Reserved Reading location - IP/workstation name: [email or web address]
--- NOTE | 2018-12-23 06:36 | ER Document Report ---
Entered by LISA GREER SCRIBE 12/21/18 0715 Acting as scribe for:CHARLES CROOK IV, MD ED Respiratory Problem - General Chief Complaint: Cough Stated Complaint: COUGH,CHEST PAIN,BLOODY SPUTUM Time Seen by Provider: 12/21/18 07:01 Primary Care Provider: MILES MAGAÑA MD [Primary Care Provider] - Follow up as needed Mode of Arrival: Ambulatory Information source: Patient Notes: 28-year-old female presents to the emergency department today with complaints of asthma exacerbation. Patient states her asthma has been well controlled for the most part but over the last 2 to 3 weeks at her apartment complex there has been lots of yard work being done. Patient states she feels like the yard work has kicked up lots of dust as well as smoke from the machinery which has caused her asthma flares. Patient denies any other symptoms including fever. TRAVEL OUTSIDE OF THE [place] IN LAST 30 DAYS: No - Related Data Allergies/Adverse Reactions: Potassium Clavulanate * [From Augmentin] Allergy (Mild, Verified 10/07/18 10:41) amoxicillin trihydrate [From Augmentin] Allergy (Verified 10/07/18 10:41) Past Medical History - General Information source: Patient - Social History Smoking Status: Never Smoker Chew tobacco use (# tins/day): No Frequency of alcohol use: None Drug Abuse: None Family History: Arthritis, CAD, DM, Hyperlipidemia, Hypertension, Malignancy Patient has suicidal ideation: No Patient has homicidal ideation: No - Past Medical History Cardiac Medical History: Reports: Hx Hypertension Pulmonary Medical History: Reports: Hx Asthma Neurological Medical History: Reports: Hx Migraine Musculoskeletal Medical History: Reports Hx Arthritis Skin Medical History: Reports Hx Eczema Psychiatric Medical History: Reports: Hx Anxiety Past Surgical History: Reports: Hx Oral Surgery - wisdom teeth - Immunizations Immunizations up to date: No Hx Diphtheria, Pertussis, Tetanus Vaccination: No Review of Systems - Review of Systems Constitutional: denies: Fever EENT: No symptoms reported Cardiovascular: No symptoms reported Respiratory: See HPI, Short of breath, Wheezing Gastrointestinal: No symptoms reported Genitourinary: No symptoms reported Female Genitourinary: No symptoms reported Musculoskeletal: No symptoms reported Skin: No symptoms reported Hematologic/Lymphatic: No symptoms reported Neurological/Psychological: No symptoms reported -: Yes All other systems reviewed and negative Physical Exam - Vital signs Vitals: Temp Pulse Resp BP Pulse Ox 98.4 F 100 20 147/97 H 98 12/21/18 05:04 12/21/18 05:04 12/21/18 05:04 12/21/18 05:04 12/21/18 05:04 - Notes Notes: Physical Exam: General: Alert, appears short of breath. HEENT: Normocephalic. Atraumatic. PERRL. Extraocular movements intact. Oropharynx clear. Posterior oropharynx erythema with minimal right-sided tonsillar hypertrophy. Uvula is midline and not edematous. Neck: Supple. Non-tender. Respiratory: Mild respiratory distress. Wheezing and rhonchi throughout all lung salguero. Cardiovascular: Regular rate and rhythm. Abdominal: Normal Inspection. Non-tender. No distension. Normal Bowel Sounds. Back: No gross abnormalities. Extremities: Moves all four extremities. Upper extremities: Normal inspection. Normal ROM. Lower extremities: Normal inspection. No edema. Normal ROM. Neurological: Normal cognition. AAOx4. Normal speech. Psychological: Normal affect. Normal Mood. Skin: Warm. Dry. Normal color. Course - Vital Signs Vital signs: Temp Pulse Resp BP Pulse Ox 98.4 F 100 20 147/97 H 98 12/21/18 05:04 12/21/18 05:04 12/21/18 05:04 12/21/18 05:04 12/21/18 05:04 - Laboratory Result Diagrams: 12/21/18 06:43 Laboratory results interpreted by me: 12/21/18 06:43 Hgb 11.6 L RDW 15.7 H Discharge - Discharge Clinical Impression: Asthma with acute exacerbation in adult Condition: Good Disposition: HOME, SELF-CARE Instructions: Asthma ([facility]) Additional Instructions: Aerosol Spacer An aerosol spacer chamber should be used with your inhaler. Spacers helps the aerosol drug get into the airways better. A spacer can be used with cortisone-like drugs such as Azmacort, Beclovent or Vanceril, and with bronc hodilator drugs such as Atrovent, Alupent, Proventil, Serevent, and Ventolin. The spacer mixes the medicine with air and holds it suspended in the air, ready for you to breathe it in. It decreases the amount that hits your mouth and throat, which decreases side effects. The spacer helps get the medicines deeper into the bronchial tubes. Up to 2-3 times more medicine gets into the deeper airways. Patients of all ages can benefit from using a spacer. It's very helpful for children and for adults who have trouble timing their inhalation to the puff of the inhaler. It's also useful for adults who have trouble getting the tongue out of the way of the inhaler's blast. Return to the Emergency Department without delay if any worse. HOME CARE INSTRUCTIONS & INFORMATION: Thank you for choosing us for your medical needs. We hope you're satisfied with the care you received. After you l eave, you must properly care for your problem and, at the same time, observe its progress. Any condition can change. Some illnesses can change rapidly over hours or days. If your condition worsens, return to the Emergency Department or see your physician promptly. ABOUT YOUR X-RAYS AND EKG'S: If you had an EKG or X-rays taken, they have been read by the Emergency Physician. The X-rays and EKG's will also be read by a Radiologist or Geodetic Survey Director within 24 hours. If discrepancies are noted, you will be notified by telephone. Please be certain the ED has a correct telephone number & address where you can be reached. Also, realize that some fractures or abnormalities do not show up on initial X-rays. If your symptoms continue, see your physician. ABOUT YOUR LABORATORY TEST: If you had laboratory tests, the results have been reviewed by the Emergency Physician. Some test results (for example cultures) may not be available for several days. You will be contacted if any test result shows you need additional treatment. Please be certain the ED has a correct telephone number and address where you can be reached. ABOUT YOUR MEDICATIONS: You will receive instructions on how to take your medicine on the prescription label you receive. Additional information may be provided by the Pharmacy. If you have questions afterwards, call the ED for clarification or further instructions. Some prescribed medications may cause drowsiness. Do not perform tasks such as driving a car or operating machinery without consulting your Pharmacist. If you feel you need a refill of pain medication, your condition will need re-evaluation. Please do not call for a refill of any medication. ABOUT YOUR SIGNATURE: Signature of this document acknowledges to followin. Understanding that you received emergency treatment and that you may be released before al medical problems are known or treated. Please be certain the ED has a correct phone number & address where you can be reached. 2. Acknowledgement that you will arrange for follow-up care as recommended. 3. Authorization for the Emergency Physician to provide information to your follow-up Physician in order to maximize your care. AT ANY TIME, IF YOUR SYMPTOMS CHANGE SIGNIFICANTLY OR WORSEN OR YOU DEVELOP NEW SYMPTOMS, RETURN TO THE EMERGENCY DEPARTMENT IMMEDIATELY FOR RE-EVALUATION. OUR GOAL IS TO PROVIDE EXCELLENT MEDICAL CARE! WE HOPE THAT WE HAVE MET YOUR EXPECTATIONS DURING YOUR EMERGENCY DEPARTMENT VISIT AND THAT YOU FEEL YOU HAVE RECEIVED EXCELLENT CARE! Prescriptions: Prednisone [Deltasone 20 mg Tablet] 60 mg PO DAILY 4 Days #12 tablet Forms: Return to Work Referrals: MILES MAGAÑA MD [Primary Care Provider] - Follow up as needed I personally performed the services described in the documentation, reviewed and edited the documentation which was dictated to the scribe in my presence, and it accurately records my words and actions.
== END 2018-12-21 11:41 | disposition home or self-care (01) ==
LOC: ER 04:58
DX: J45.901 Unspecified asthma with (acute) exacerbation (principal); R07.9 Chest pain, unspecified; I10 Essential (primary) hypertension; Z88.0 Allergy status to penicillin
CPT/HCPCS: 94640 ×2; 99283; 96375; 96365; 96366; 36415; 85025; 71046; J2930; J3475; J7040; J7620

== ENCOUNTER 2020-02-29 00:55 | Emergency (ER) | payer OTHER ==
[2020-02-29] MEDS ORDERED: ACETAMINOPHEN 325 MG TABLET PO ONE (01:16)
--- NOTE | 2020-02-29 02:51 | ER Document Report ---
ED Fever - General Chief Complaint: Fever Stated Complaint: VOMITTING,FEVER,COVID+ 02/28/2020 Time Seen by Provider: 02/29/20 01:29 Primary Care Provider: MILES MAGAÑA MD [Primary Care Provider] - Follow up as needed TRAVEL OUTSIDE OF THE [place] IN LAST 30 DAYS: No - HPI Notes: Patient is a 30 y/o female who tested positive for COVID yesterday and presents with fever. Patient states she began having symptoms five days ago which included fever, myalgias, nausea, vomiting, and headache. She came to the emergency department because she was concerned her home ibuprofen wouldn't be "strong" enough to treat her fever. She also reports low back pain and would like to make sure she doesn't have a UTI. She denies taking any medication today for symptom relief. - Related Data Allergies/Adverse Reactions: Potassium Clavulanate * [From Augmentin] Allergy (Mild, Verified 10/07/18 10:41) amoxicillin trihydrate [From Augmentin] Allergy (Verified 10/07/18 10:41) Past Medical History - General Information source: Patient - Social History Smoking Status: Current Every Day Smoker Family History: Arthritis, CAD, DM, Hyperlipidemia, Hypertension, Malignancy - Past Medical History Cardiac Medical History: Reports: Hx Hypertension Pulmonary Medical History: Reports: Hx Asthma Neurological Medical History: Reports: Hx Migraine Renal/ Medical History: Denies: Hx Peritoneal Dialysis Musculoskeletal Medical History: Reports Hx Arthritis Skin Medical History: Reports Hx Eczema Psychiatric Medical History: Reports: Hx Anxiety Past Surgical History: Reports: Hx Oral Surgery - wisdom teeth - Immunizations Immunizations up to date: No Hx Diphtheria, Pertussis, Tetanus Vaccination: No Review of Systems - Review of Systems Constitutional: See HPI EENT: No symptoms reported Cardiovascular: No symptoms reported Respiratory: No symptoms reported Gastrointestinal: No symptoms reported Genitourinary: No symptoms reported Female Genitourinary: No symptoms reported Musculoskeletal: See HPI Skin: No symptoms reported Hematologic/Lymphatic: No symptoms reported Neurological/Psychological: No symptoms reported Physical Exam - Notes Notes: PHYSICAL EXAMINATION: VITALS: Vitals reviewed and within normal limits. GENERAL: Well-appearing, well-nourished and in no acute distress. HEAD: Atraumatic, normocephalic. EYES: Pupils equal, round, and reactive to light, extraocular movements intact, sclera anicteric, conjunctiva are normal. ENT: Nares patent. Moist mucous membranes. Oropharynx clear without exudates. NECK: Normal range of motion, supple without lymphadenopathy. LUNGS: Breath sounds clear to auscultation bilaterally and equal. No wheezes, rales, or rhonchi. HEART: Regular, rate, and rhythm without murmurs. ABDOMEN: Soft, nontender, normoactive bowel sounds. No guarding, no rebound. No masses appreciated. EXTREMITIES: Normal range of motion, no pitting or edema. No cyanosis. NEUROLOGICAL: No focal neurological deficits. Moves all extremities spontaneously and on command. PSYCH: Normal mood, normal affect. SKIN: Warm, Dry, normal turgor, no rashes or lesions noted. Course - Re-evaluation Re-evalutation: Patient is a 30-year-old female who tested positive for COVID yesterday and presents with fever and myalgias including low back pain. Patient is requesting urinalysis to be done to make sure she does not have a UTI. UA shows small leukocyte esterase with 1+ bacteria, and 6 WBCs. However there are 6 squamous epithelial cells as well. Patient denies dysuria so we will hold off on antibiotics at this point but urine culture has been ordered. Patient given Tylenol here in the ED and she reports an improvement in her fever as well as her myalgias. I advised that the patient alternate with Tylenol and ibuprofen at home. Return precautions and follow-up instructions given. Patient will be discharged home. Patient understands and is in agreement with the plan. - Laboratory Results Laboratory Results Interpreted: 02/29/20 02:03 Urine Ketones 20 H Urine Blood LARGE H Ur Leukocyte Esterase SMALL H Critical Laboratory Results Reviewed: No Critical Results - Radiology Results Critical Radiology Results Reviewed: No Critical Results Discharge - Discharge Clinical Impression: COVID-19, Myalgia Fever Qualifiers: Fever type: unspecified Qualified Code(s): R50.9 - Fever, unspecified Condition: Stable Disposition: HOME, SELF-CARE Instructions: COVID-19 Guidance for Persons Under Investigation, Fever ([facility]) Referrals: MILES MAGAÑA MD [Primary Care Provider] - Follow up as needed
[2020-02-29 03:16] LABS: APPEARANCE,URINE SLIGHTLY-CLOUDY; BILIRUBIN,URINE NEGATIVE (NEGATIVE); COLOR,URINE YELLOW; GLUCOSE, URINE NEGATIVE (NEGATIVE); KETONES,URINE 20 mg/dL (NEGATIVE); LEUKOCYTE ESTERASE,URINE SMALL (NEGATIVE); NITRITE,URINE NEGATIVE (NEGATIVE); PROTEIN,URINE NEGATIVE (NEGATIVE); URINE SPECIFIC GRAVITY 1.018; UROBILINOGEN,URINE NEGATIVE mg/dL (<2.0)
[2020-02-29 03:35] VITALS: BP 116/70
== END 2020-02-29 03:35 | disposition home or self-care (01) ==
LOC: ER 00:55
DX: U07.1 COVID-19 (principal); R50.9 Fever, unspecified; M79.18 Myalgia, other site; J45.909 Unspecified asthma, uncomplicated; I10 Essential (primary) hypertension; F17.200 Nicotine dependence, unspecified, uncomplicated; Z88.0 Allergy status to penicillin
CPT/HCPCS: 81001; 87086; 99283